=== PATIENT | male | born 1935 | race American Indian/Alaskan Native ===

== ENCOUNTER 2017-05-12 12:59 | Day surgery (SDC) | payer MEDICARE ==
[~2017-05-12 12:59] MED LIST: ANCEF/STERILE WATER 2 GM/20 ML 2 GM/20 ML SYRINGE IV NR
--- NOTE | 2017-05-12 13:56 | Anesthesia Consultation ---
Anesthesia Consult and Med Hx Date of service: 05/12/17 - Airway Anesthetic Teeth Evaluation: Dentures ROM Head & Neck: Adequate Mental/Hyoid Distance: Adequate Mallampati Class: Class I Intubation Access Assessment: Good - Pulmonary Exam CTA: Yes - Cardiac Exam Cardiac Exam: RRR - Pre-Operative Health Status ASA Pre-Surgery Classification: ASA3 Proposed Anesthetic Plan: General - Pulmonary Hx Smoking: No Hx Sleep Apnea: No (VINCENZO PRE SCREEN LOW RISK) - Cardiovascular System Hx Hypertension: No Hx Coronary Artery Disease: No Hx Heart Attack/AMI: No - Gastrointestinal Hx Ulcer: Yes Hx Gastroesophageal Reflux Disease: Yes (Active sx's) - Endocrine Hx Renal Disease: No Hx Non-Insulin Dependent Diabetes: Yes (Accucheck 232) - Other Systems Hx Substance Use: No Hx Cancer: Yes Hx Obesity: No - Additional Comments Anesthesia Medical History Comments: Pt. signs own forms, but appears to be somewhat confused. No apparent previous anesthesia complcations, according to the discussion during assessment.
--- NOTE | 2017-05-12 13:56 | Anesthesia Day of Surgery ---
Anesthesia Day of Surgery - Day of Surgery Patient Examined: Yes Patient H&P Reviewed: Yes Patient is NPO: Yes
[2017-05-12] MEDS ORDERED: PEPCID IV NR (14:00)
[2017-05-12] MEDS ORDERED: PEPCID PO NR (14:00)
[2017-05-12] MEDS ORDERED: NACL 0.9% 1000 ML 1,000 ML IV SCH ×2 (14:00)
[2017-05-12] MEDS ORDERED: MORPHINE IV PRN (14:37)
[2017-05-12] MEDS ORDERED: PERCOCET 5/325 PO PRN (14:37)
[2017-05-12] MEDS ORDERED: ZOFRAN IV PRN (14:37)
--- NOTE | 2017-05-12 15:07 | Post Operative Note ---
Date of procedure: 05/12/17 Pre-op diagnosis: hematuria Post-op diagnosis: same Findings: erythema post xrt Procedure: cysto rpgs biopsies Anesthesia: GETA Surgeon: OSWALD CARDONA Estimated blood loss: minimal Pathology: list (bladder) Specimen disposition: to lab Condition: stable Disposition: PACU
--- NOTE | 2017-05-12 15:08 | Discharge Summary ---
Short Stay Discharge Plan Activity: other (no strainin g ) Weight Bearing Status: Full Weight Bearing Diet: low fat, low cholesterol Special Instructions: other (inc fluids ) Durable Medical Equipment Needed Upon Discharge: other Follow up with: MARICRUZ SWEET [Other] - 7 Days OSWALD CARDONA MD [Staff Physician] - 7 Days
[2017-05-12] MEDS ORDERED: DIPRIVAN 10 MG/ML IV ONE (15:11)
[2017-05-12] MEDS ORDERED: SUBLIMAZE ONE (15:12)
[2017-05-12] MEDS ORDERED: ZOFRAN ONE (15:39)
[2017-05-12] MEDS ORDERED: XYLOCAINE MPF 2% ONE (15:39)
[2017-05-12] MEDS ORDERED: DECADRON ONE (15:39)
[2017-05-12] MEDS ORDERED: NEO SYNEPHRINE ONE (15:54)
[2017-05-12] MEDS ORDERED: WATER FOR IRRIG STERILE IR ONE (16:00)
--- NOTE | 2017-05-12 16:39 | Operative Report ---
PREOPERATIVE DIAGNOSES: History of radiation, increased erythema in the bladder, hematuria. POSTOPERATIVE DIAGNOSES: History of radiation, increased erythema in the bladder, hematuria. PROCEDURE: Cystoscopy, retrograde biopsy. SURGEON: Vishnu Anton MD. ANESTHESIA: General. FINDINGS: This is a gentleman with previous radiation, now presents for biopsies and cystoscopy. All risks and complications were discussed. DESCRIPTION OF PROCEDURE: The patient brought to the operating room and placed on the operating table. Following induction of anesthesia, placed in lithotomy position, prepped and draped in usual sterile fashion. Cystourethroscopy showed mild erythema posterior wall. Biopsies were obtained. The area was cauterized. Retrograde showed very small orifices, small on the right than the left. Retrograde showed air bubbles at the UPJ. We reinjected and waited for it to drain, so we could see a clear UPJ. We did not have the ureteroscope. The patient tolerated the procedure well. No catheter was left, brought to recovery in stable condition. JOB# [id number] IMTIAZ/LAURIE
--- NOTE | 2017-05-12 16:40 | Fluoroscopy Report ---
Retrograde pyelogram: Gross hematuria Initial images demonstrate brachy therapy seeds in the prostate bed. Injection of contrast into the left ureter demonstrates a normal appearing ureter and intrarenal collecting system with the exception of the superior pole calyces which are not included on the images. Injection of the right side demonstrates normal ureter and intrarenal collecting system. Impression: Nonvisualization of left superior pole calyx.
--- NOTE | 2017-05-12 16:44 | Post Anesthesia Evaluation ---
- Post Anesthesia Evaluation Patient Participated: Yes Airway Patent: Yes Stable Respiratory Function: Yes Temp > 96.8F: Yes Pain Manageable: Yes Adequeate Hydration: Yes Anesthesia Complications: No
[2017-05-12 17:01] VITALS: BP 156/90
== END 2017-05-12 18:10 | disposition home or self-care (01) ==
LOC: OR 12:59
PROVIDERS: ATTEND Urology
DX: C61 Malignant neoplasm of prostate (principal); Z87.891 Personal history of nicotine dependence
CPT/HCPCS: 52005; 52204; 74420; 82962; 88112; 88305; A4217; C1758; J0690; J1100; J2370; J2405; J2704; J3010; J7030; Q9967

== ENCOUNTER 2017-06-23 07:15 | Outpatient (CLI) | payer MEDICARE ==
--- NOTE | 2017-06-23 09:25 | Fluoroscopy Report ---
BARIUM SWALLOW INDICATION: Dysphagia. COMPARISON: None similar. FINDINGS: Barium swallow performed. Patient swallowed thick and thin barium without any difficulty as also tolerated effervescent granules well. No aspiration or penetration with normal swallowing mechanism. No abnormal pooling within the vallecula or right piriform sinus noted. Suboptimal coating/slight irregular filling/opacification of the left piriform sinus questioned on some images while appears symmetric/somewhat normal on few others. Esophagus is normal in course and caliber. Normal peristalsis. No focal suspicious esophageal mucosal abnormality. No demonstrable hiatal hernia or gastroesophageal reflux. Visualized gastric fundus is unremarkable. Standard barium tablet passed into the stomach without any difficulty or delay/holdup. CONCLUSION: Normal exam except for questionable irregularity/filling defect in the left piriform sinus versus artifactual, as described. Please also correlate clinically. Neck CT with contrast may help further characterize, if warranted. Thank you for the opportunity to participate in this patient's care.
== END 2017-06-23 07:16 | disposition home or self-care (01) ==
LOC: FLUORO 07:15
PROVIDERS: ATTEND Internal Medicine Gastroenterology
DX: R13.10 Dysphagia, unspecified (principal); R10.10 Upper abdominal pain, unspecified; R63.4 Abnormal weight loss; Z86.19 Personal history of other infectious and parasitic diseases
CPT/HCPCS: 74220

== ENCOUNTER 2018-05-31 13:10 | Emergency (ER) | payer MEDICARE ==
--- NOTE | 2018-05-31 13:39 | Emergency Department Report ---
ED Fall HPI - General Chief Complaint: Fall Stated Complaint: FALL Source: patient, family Mode of arrival: Wheelchair - History of Present Illness Initial Comments: This is a 82-year-old -[place] male who presents with left-sided rib pain and radiating to left flank. Patient states he was walking down the stairs in his home with a load of laundry and missed the second step from the top causing him to fall. Patient states his back bumped against several steps prior to landing. He is now complaining of left-sided rib heaviness radiating to the left flank. Patient reports pain is 10 out of 10 on pain scale worse with touch. It is a sharp radiating pain. He denies loss of consciousness, hitting his, dizziness, nausea or vomiting, chest pain, shortness of breath, paresthesias, swelling, or numbness or tingling. MD Complaint: fall Onset/Timin -: hour(s) Fall From: down stairs (#) (12) When Fall Occurred: 1-3 hours [employer] Fall Witnessed: no Place Fall Occurred: home Loss of Consciousness: none Prolonged Down Time?: no Symptoms Prior to Fall: none Location: chest (left sided rib pain), back Severity: severe Severity scale (0 -10): 10 Quality: sharp, aching Context: tripped/slipped Associated Symptoms: denies - Related Data Home Medications Medication Instructions Recorded Confirmed Last Taken Glipizide/Metformin HCl 1 each PO BID 05/06/17 05/12/17 05/11/17 09:00 [glipiZIDE-Metformin 5-500 mg] Previous Rx's Medication Instructions Recorded Last Taken Type Pantoprazole [Protonix TAB] 20 mg PO QDAY #30 tablet. 10/01/15 05/11/17 09:00 Rx traMADol [Ultram 50 MG tab] 50 mg PO Q6HR PRN #8 tablet 05/31/18 Unknown Rx Allergies Allergy/AdvReac Type Severity Reaction Status Date / Time No Known Allergies Allergy Verified 05/31/18 13:17 ED Review of Systems ROS: Stated complaint: FALL Other details as noted in HPI Constitutional: denies: chills, fever Respiratory: denies: cough, shortness of breath, wheezing Cardiovascular: denies: chest pain, palpitations Gastrointestinal: denies: abdominal pain, nausea, diarrhea Musculoskeletal: back pain. denies: joint swelling, arthralgia Skin: denies: rash, lesions Neurological: denies: headache, weakness, paresthesias Psychiatric: denies: anxiety, depression ED Past Medical Hx - Past Medical History Hx Hypertension: No Hx Heart Attack/AMI: No Hx Diabetes: Yes Hx GERD: Yes Hx Renal Disease: No Hx Arthritis: Yes (ARMS AND SHOULDER) Hx HIV: No Additional medical history: blood in stool @ times - Surgical History Hx Appendectomy: Yes Additional Surgical History: Prostate surgery - Social History Smoking Status: Never Smoker Substance Use Type: None - Medications Home Medications: Home Medications Medication Instructions Recorded Confirmed Last Taken Type Pantoprazole [Protonix TAB] 20 mg PO QDAY #30 tablet. 10/01/15 05/12/17 05/11/17 09:00 Rx Glipizide/Metformin HCl 1 each PO BID 05/06/17 05/12/17 05/11/17 09:00 History [glipiZIDE-Metformin 5-500 mg] traMADol [Ultram 50 MG tab] 50 mg PO Q6HR PRN #8 tablet 05/31/18 Unknown Rx ED Physical Exam - General Limitations: Physical Limitation General appearance: alert, in no apparent distress - Respiratory Respiratory exam: Present: normal lung sounds bilaterally, chest wall tenderness (tenderness on palpation of ribs 6-8 on left, no erythema or swelling). Absent: respiratory distress - Cardiovascular Cardiovascular Exam: Present: regular rate, normal rhythm. Absent: systolic murmur, diastolic murmur, rubs, gallop - GI/Abdominal GI/Abdominal exam: Present: soft, normal bowel sounds. Absent: distended, tenderness, guarding, rebound, rigid, organomegaly, mass - Back Exam Back exam: Present: tenderness, paraspinal tenderness (tenderness to palpation of left latissimus dorsi, no erythema, ecchymosis, or swelling). Absent: full ROM (limited flexion secondary pain), rash noted - Neurological Exam Neurological exam: Present: alert, oriented X3 - Psychiatric Psychiatric exam: Present: normal affect, normal mood - Skin Skin exam: Present: warm, dry, intact, normal color. Absent: rash ED Course Vital Signs 05/31/18 05/31/18 05/31/18 13:17 13:32 14:09 Temperature 98.0 F Pulse Rate 82 Respiratory 18 17 16 Rate Blood Pressure 125/89 O2 Sat by Pulse 100 Oximetry ED Medical Decision Making - Radiology Data Radiology results: report reviewed THORACIC SPINE, 2 VIEWS: HISTORY: back pain. Osteopenia is suspected. There is moderate multilevel degenerative disc disease throughout the thoracic spine. T1-T3 is not adequately visualized on the lateral image but are grossly unremarkable on the AP image. No obvious thoracic fracture is appreciated. IMPRESSION: Osteopenia. Thoracic spondylosis. No obvious fracture. There is poor visualization of T1-T3. LEFT RIBS, 3 VIEWS: History: pain. Routine views of the rib cage demonstrate normal mineralization with no significant contour abnormalities, fractures or destructive lesions. PA view of the chest demonstrates no underlying cardiopulmonary abnormalities, fluid or pneumothorax. IMPRESSION: Unremarkable left rib series. - Medical Decision Making Patient was examined by me. Vitals are normal and patient is in no acute distress. Given tramadol 50 mg by mouth once while in ER. Obtained a x-ray thoracic spine and left ribs. X-ray dictated by radiologist report reviewed by myself. Osteopenia. Thoracic spondylosis. No obvious fracture. There is poor visualization of T1-T3. Unremarkable left rib series. Patient informed of results. Start tramadol for pain. Instructed to follow-up with primary care provider if symptoms are worsening. Referral to orthopedic surgeon. Patient discharged home in stable condition. Follow up with PCP in 2-3 days. Critical care attestation.: If time is entered above; I have spent that time in minutes in the direct care of this critically ill patient, excluding procedure time. ED Disposition Clinical Impression: Rib pain on left side, Muscle strain Back pain Qualifiers: Back pain location: thoracic back pain Chronicity: acute Back pain laterality: left Qualified Code(s): M54.6 - Pain in thoracic spine Fall Qualifiers: Encounter type: initial encounter Qualified Code(s): W19.XXXA - Unspecified fall, initial encounter Disposition: TO HOME OR SELFCARE Is pt being admited?: No Does the pt Need Aspirin: No Condition: Stable Instructions: Muscle Strain (ED), Fall Prevention (ED), Back Pain (ED) Additional Instructions: Rest Use ice or heat on affected area for 20 minutes and off for 2 hours. Take pain medication as needed for pain. Follow up with Primary Care Provider in 2-3 days. Prescriptions: traMADol [Ultram 50 MG tab] 50 mg PO Q6HR PRN #8 tablet PRN Reason: Pain Referrals: OBIEKWE,ONWURA, MD [Primary Care Provider] - 3-5 Days [facility] [Provider Group] - 3-5 Days [facility] [Provider Group] - 3-5 Days Time of Disposition: 14:50
[2018-05-31] MEDS ORDERED: ULTRAM PO ONE (14:06)
--- NOTE | 2018-05-31 14:31 | XRay Report ---
LEFT RIBS, 3 VIEWS: History: pain. Routine views of the rib cage demonstrate normal mineralization with no significant contour abnormalities, fractures or destructive lesions. PA view of the chest demonstrates no underlying cardiopulmonary abnormalities, fluid or pneumothorax. IMPRESSION: Unremarkable left rib series.
--- NOTE | 2018-05-31 14:32 | XRay Report ---
THORACIC SPINE, 2 VIEWS: HISTORY: back pain. Osteopenia is suspected. There is moderate multilevel degenerative disc disease throughout the thoracic spine. T1-T3 is not adequately visualized on the lateral image but are grossly unremarkable on the AP image. No obvious thoracic fracture is appreciated. IMPRESSION: Osteopenia. Thoracic spondylosis. No obvious fracture. There is poor visualization of T1-T3.
[2018-05-31 15:14] VITALS: BP 148/89
== END 2018-05-31 15:13 | disposition home or self-care (01) ==
LOC: ED 13:10
DX: S29.011A Strain of muscle and tendon of front wall of thorax, initial encounter (principal); E11.9 Type 2 diabetes mellitus without complications; K21.9 Gastro-esophageal reflux disease without esophagitis; M19.012 Primary osteoarthritis, left shoulder; M19.011 Primary osteoarthritis, right shoulder; W10.9XXA Fall (on) (from) unspecified stairs and steps, initial encounter; Y93.89 Activity, other specified; Y92.89 Other specified places as the place of occurrence of the external cause; Y99.8 Other external cause status
CPT/HCPCS: 72072

== ENCOUNTER 2020-09-20 18:52 | Inpatient (IN) | payer MEDICARE ==
[2020-09-20] MEDS ORDERED: SODIUM CHLORIDE 0.9% 1000 ML 1,000 ML IV ONE (19:55)
--- NOTE | 2020-09-20 20:01 | Emergency Department Report ---
HPI - General Chief Complaint: Hypoglycemia PUI?: No Time Seen by Provider: 09/20/20 19:40 - HPI HPI: 85-year-old male with history of DM 2 on combination of glipizide and Metformin brought in by EMS after he was found unresponsive. Apparently he passed out while on the way to a gas station. He was outside of his car and was walking but it is unclear whether he actually fell over or hit his head, although the patient denies any injuries. According to the EMS report, the patient's blood sugar was 50 on arrival. He was given oral glucose with improvement of his blood sugar to 137. In addition, the patient became alert and oriented with the treatment. At the time of my assessment, the patient is alert and oriented alt fabian he is a very poor historian. He states he remembers going to the gas station to try to get some food but does not remember anything after that. He says that he has been suffering from peptic ulcer disease for very long time and has chronic abdominal pain but his epigastric abdominal pain has been worse over the last day. He is unable to say whether his abdomen is more distended than normal. Other than the abdominal pain which he states is not that uncommon, he has had no other symptoms or complaints. When asked, he does say that he has had some urinary frequency and dysuria recently. He denies any recent fever/chills, headache, vision change, chest pain, shortness of breath, vomi ting, increased lower extremity swelling, or any other complaints. ED Past Medical Hx - Past Medical History Previous Medical History?: Yes Hx Hypertension: No Hx Heart Attack/AMI: No Hx Diabetes: Yes Hx GERD: Yes Hx Renal Disease: No Hx Arthritis: Yes (ARMS AND SHOULDER) Hx HIV: No Additional medical history: blood in stool @ times - Surgical History Past Surgical History?: Yes Hx Appendectomy: Yes Additional Surgical History: Prostate surgery - Social History Smoking Status: Never Smoker Substance Use Type: None - Medications Home Medications: Home Medications Medication Instructions Recorded Confirmed Last Taken Type Pantoprazole [Protonix TAB] 20 mg PO QDAY #30 tablet. 10/01/15 05/12/17 05/11/17 09:00 Rx Glipizide/Metformin HCl 1 each PO BID 05/06/17 05/12/17 05/11/17 09:00 History [glipiZIDE-Metformin 5-500 mg] traMADoL [Ultram 50 MG tab] 50 mg PO Q6HR PRN #8 tablet 05/31/18 Unknown Rx ED Review of Systems ROS: Stated complaint: LOW BLOOD SUGAR Other details as noted in HPI Constitutional: denies: chills, fever Eyes: denies: eye pain, vision change ENT: denies: throat pain, epistaxis Respiratory: denies: cough, shortness of breath Cardiovascular: denies: chest pain, syncope Gastrointestinal: abdominal pain. denies: nausea, vomiting Genitourinary: dysuria, frequency Musculoskeletal: denies: back pain, myalgia Neurological: denies: headache, weakness, numbness, paresthesias Physical Exam - Physical Exam Vital Signs: Vital Signs 09/20/20 09/20/20 09/20/20 19:15 19:30 19:47 Temperature 94.8 F L Pulse Rate 67 64 Respiratory 36 H 15 Rate Blood Pressure 142/74 O2 Sat by Pulse 99 98 Oximetry Physical Exam: GENERAL: No acute distress HEENT: Normocephalic. No obvious contusions, lacerations, or abrasions. Very dry mucous membranes. EYES: Extraocular movements are intact. Pupils are equal round and reactive to light bilaterally NECK: Supple. Trachea is midline. LUNGS: Nonlabored breathing. Equal chest rise bilaterally. Clear to auscultation bilaterally. HEART/CARDIOVASCULAR: Regular rate and rhythm. No murmurs or rubs. ABDOMEN: Abdomen very distended but soft. There is tenderness noted in all four quadrants without rebound or guarding. SKIN: Skin is warm and dry NEURO: Patient is awake, alert, and oriented. No focal deficits. Normal motor and sensory exam throughout. Normal speech. MUSCULOSKELETAL: Normal ROM throughout. There are no tenderness or deformity. No significant limitation of range of motion. BACK/SPINE: No midline tenderness or step-offs of the C/T/L spine. No cos tovertebral angle tenderness. ED Course Vital Signs 09/20/20 09/20/20 09/20/20 19:15 19:30 19:47 Temperature 94.8 F L Pulse Rate 67 64 Respiratory 36 H 15 Rate Blood Pressure 142/74 O2 Sat by Pulse 99 98 Oximetry ED Medical Decision Making - Lab Data Result diagrams: 09/20/20 23:16 09/20/20 20:00 Laboratory Results - last 24 hr 09/20/20 09/20/20 09/20/20 20:00 20:00 20:00 WBC 7.1 RBC 4.77 Hgb 13.9 Hct 41.8 MCV 88 MCH 29 MCHC 33 RDW 14.2 Plt Count 259 Lymph % (Auto) 14.6 [place] % (Auto) 4.5 Eos % (Auto) 0.2 Baso % (Auto) 0.5 Lymph # (Auto) 1.0 L [place] # (Auto) 0.3 Eos # (Auto) 0.0 Baso # (Auto) 0.0 Seg Neutrophils % 80.2 H Seg Neutrophils # 5.7 APTT 24.1 L Sodium 140 Potassium 3.8 Chloride 104.9 Carbon Dioxide 25 Anion Gap 14 BUN 9 Creatinine 0.8 Estimated GFR > 60 BUN/Creatinine Ratio 11 Glucose 142 H Lactic Acid Calcium 9.1 Total Bilirubin 0.60 AST 17 ALT 13 Alkaline Phosphatase 107 Troponin T < 0.010 Total Protein 7.0 Albumin 4.1 Albumin/Globulin Ratio 1.4 Urine Color Urine Turbidity Urine pH Ur Specific [place] Urine Protein Urine Glucose (UA) Urine Ketones Urine Blood Urine Nitrite Urine Bilirubin Urine Urobilinogen Ur Leukocyte Esterase Urine WBC (Auto) Urine RBC (Auto) U Epithel Cells (Auto) Urine Mucus 09/20/20 09/20/20 20:00 21:10 WBC RBC Hgb Hct MCV MCH MCHC RDW Plt Count Lymph % (Auto) [place] % (Auto) Eos % (Auto) Baso % (Auto) Lymph # (Auto) [place] # (Auto) Eos # (Auto) Baso # (Auto) Seg Neutrophils % Seg Neutrophils # APTT Sodium Potassium Chloride Carbon Dioxide Anion Gap BUN Creatinine Estimated GFR BUN/Creatinine Ratio Glucose Lactic Acid 1.70 Calcium Total Bilirubin AST ALT Alkaline Phosphatase Troponin T Total Protein Albumin Albumin/Globulin Ratio Urine Color Straw Urine Turbidity Clear Urine pH 6.0 Ur Specific [place] 1.011 Urine Protein 30 mg/dl Urine Glucose (UA) 50 Urine Ketones Neg Urine Blood Neg Urine Nitrite Neg Urine Bilirubin Neg Urine Urobilinogen < 2.0 Ur Leukocyte Esterase Neg Urine WBC (Auto) < 1.0 Urine RBC (Auto) < 1.0 U Epithel Cells (Auto) < 1.0 Urine Mucus Few - EKG Data -: EKG Interpreted by Md EKG shows normal: sinus rhythm - EKG Data 05/21/21 22:43 Normal sinus rhythm. Normal axis. Normal intervals. No significant ST segment or T wave abnormalities. - Radiology Data CT ABDOMEN AND PELVIS WITH CONTRAST INDICATION: Generalized abdominal pain and distension. TECHNIQUE: Axial CT images were obtained through the abdomen and pelvis after 100 cc IV contrast. All CT scans at this location are performed using CT dose reduction for ALARA by means of automated exposure control. COMPARISON: CT abdomen pelvis 10/08/2015 FINDINGS: LOWER CHEST: Chronic mild bilateral interstitial disease/scarring. LIVER: No significant abnormality. GALLBLADDER: No significant abnormality. BILE DUCTS: No significant abnormality. PANCREAS: No significant abnormality. SPLEEN: No significant abnormality. ADRENALS: No significant abnormality. RIGHT KIDNEY and URETER: No significant abnormality. LEFT KIDNEY and URETER: No significant abnormality. STOMACH and SMALL BOWEL: No significant abnormality. COLON: Moderate left colonic diverticulosis without diverticulitis. Moderate amount of solid stool diffusely throughout colon. APPENDIX: Not visualized PERITONEUM: No free fluid. No free air. No fluid collection. LYMPH NODES: No significant adenopathy. AORTA and ARTERIES: No significant abnormality. IVC and VEINS: No significant abnormality. URINARY BLADDER: Mild to moderate thickening anterior half urinary bladder, similar to prior study REPRODUCTIVE ORGANS: Brachytherapy prostate seeds again noted. ADDITIONAL FINDINGS: None. SKELETAL SYSTEM: Moderate degenerative changes of lumbar spine and both hips IMPRESSION: 1. Brachytherapy prostate seeds with thickened anterior half urinary bladder, similar to prior study [place] secondary to chronic cystitis rather than infiltrating tumor or acute infectious cystitis 2. Diverticulosis without diverticulitis 3. Moderate constipation Signer Name: Jorge Jaramillo MD Signed: 09/20/2020 8:33 PM Workstation Name: [id number] CHEST 1 VIEW 09/20/2020 7:35 PM INDICATION / CLINICAL INFORMATION: Possible sepsis. COMPARISON: None available. FINDINGS: SUPPORT DEVICES: None. HEART / MEDIASTINUM: No significant abnormality. LUNGS / PLEURA: No significant pulmonary or pleural abnormality. No pneumothorax. ADDITIONAL FINDINGS: Moderate degenerative arthrosis both shoulders IMPRESSION: 1. No acute findings. Signer Name: Jorge Jaramillo MD Signed: 09/20/2020 7:36 PM Wor kstation Name: [id number] - Medical Decision Making 85-year-old male brought in by EMS after he was found to have passed out at a gas station. He was found to be hypoglycemic with a blood sugar of 50 which improved to 137 after oral glucose. The patient's clinical status improved as well. On initial assessment, the patient was noted to have a rectal temperature of 94.8. The remainder of his vital signs are not significantly abnormal. Although the patient is alert and oriented, he is a poor historian and it is very difficult to get straight answers or details of the patient's history of present illness. His physical exam is significant for very dry mucous membranes and significant generalized abdominal distention as well as generalized tenderness without guarding or rebound. Although his hypoglycemia may have been secondary to not eating today and taking medication which includes both glipizide and Metformin, given that hypoglycemia can be secondary to infection, suspected sepsis order set was initiated until we are able to determine whether an infection is present. In addition, I have ordered CT of the abdomen and pelvis with IV contrast as well as every hour Accu-Cheks. We will give 1 L of IV fluids with frequent blood glucose checks to ensure that we avoid hypoglycemia At 9:22 PM, on repeat assessment, the patient is noted to still be hypothermic with a rectal temp of 94.4 F. Labs including CBC, CMP, troponin, lactic acid, and urinalysis are within normal limits. We will follow up imaging. Chest x-ray shows no significant abnormalities. CT of the abdomen and pelvis reveals no significant abnormalities to explain the patient's abdominal pain or hypoglycemia. Nonetheless, given that he was persistently hypothermic and presented with hypoglycemia of unknown origin he will require admission to the hospital for further observation and possible work-up/management. Critical Care Time: No Critical care attestation.: If time is entered above; I have spent that time in minutes in the direct care of this critically ill patient, excluding procedure time. ED Disposition Clinical Impression: Hypoglycemia, Hypothermia, Generalized abdominal pain, Syncope Disposition: OP ADMIT IP TO THIS HOSP Is pt being admited?: Yes Condition: Stable
[2020-09-20 20:23] LABS: Basophils % (Auto) 0.5 % (0.0-1.8); Eosinophils % (Auto) 0.2 % (0.0-4.3); Hematocrit 41.8 % (35.5-45.6); Hemoglobin 13.9 gm/dl (11.8-15.2); Lymphocytes % (Auto) 14.6 % (13.4-35.0); Mean Corpuscular HGB Conc 33 % (32-34); Mean Corpuscular Volume 88 fl (84-94); Monocytes # (Auto) 0.3 K/mm3 (0.0-0.8); Monocytes % (Auto) 4.5 % (0.0-7.3); Platelet Count 259 K/mm3 (140-440); Red Blood Count 4.77 M/mm3 (3.65-5.03); Red Cell Distribution Width 14.2 % (13.2-15.2)
--- NOTE | 2020-09-20 20:41 | XRay Report ---
CHEST 1 VIEW 09/20/2020 7:35 PM INDICATION / CLINICAL INFORMATION: Possible sepsis. COMPARISON: None available. FINDINGS: SUPPORT DEVICES: None. HEART / MEDIASTINUM: No significant abnormality. LUNGS / PLEURA: No significant pulmonary or pleural abnormality. No pneumothorax. ADDITIONAL FINDINGS: Moderate degenerative arthrosis both shoulders IMPRESSION: 1. No acute findings. Signer Name: Jorge Jaramillo MD Signed: 09/20/2020 8:36 PM Workstation Name: [id number]
[2020-09-20 20:44] LABS: Alanine Aminotransferase 13 units/L (7-56); Albumin 4.1 g/dL (3.9-5); BUN/Creatinine Ratio 11; Blood Urea Nitrogen 9 mg/dL (9-20); Calcium 9.1 mg/dL (8.4-10.2); Hemolysis Index 9
--- NOTE | 2020-09-20 21:38 | Cat Scan Report ---
CT ABDOMEN AND PELVIS WITH CONTRAST INDICATION: Generalized abdominal pain and distension. TECHNIQUE: Axial CT images were obtained through the abdomen and pelvis after 100 cc IV contrast. All CT scans at this location are performed using CT dose reduction for ALARA by means of automated exposure contr ol. COMPARISON: CT abdomen pelvis 10/08/2015 FINDINGS: LOWER CHEST: Chronic mild bilateral interstitial disease/scarring. LIVER: No significant abnormality. GALLBLADDER: No significant abnormality. BILE DUCTS: No significant abnormality. PANCREAS: No significant abnormality. SPLEEN: No significant abnormality. ADRENALS: No significant abnormality. RIGHT KIDNEY and URETER: No significant abnormality. LEFT KIDNEY and URETER: No significant abnormality. STOMACH and SMALL BOWEL: No significant abnormality. COLON: Moderate left colonic diverticulosis without diverticulitis. Moderate amount of solid stool di ffusely throughout colon. APPENDIX: Not visualized PERITONEUM: No free fluid. No free air. No fluid collection. LYMPH NODES: No significant adenopathy. AORTA and ARTERIES: No significant abnormality. IVC and VEINS: No significant abnormality. URINARY BLADDER: Mild to moderate thickening anterior half urinary bladder, similar to prior study REPRODUCTIVE ORGANS: Brachytherapy prostate seeds again noted. ADDITIONAL FINDINGS: None. SKELETAL SYSTEM: Moderate degenerative changes of lumbar spine and both hips IMPRESSION: 1. Brachytherapy prostate seeds with thickened anterior half urinary bladder, similar to prior study likely secondary to chronic cystitis rather than infiltrating tumor or acute infectious cystitis 2. Diverticulosis without diverticulitis 3. Moderate constipation Signer Name: Jorge Jaramillo MD Signed: 09/20/2020 9:33 PM Workstation Name: [id number]
[2020-09-20 21:39] LABS: Bilirubin,Urine NEG (Negative); Blood,Urine NEG (Negative); Color,Urine Straw (Yellow); Mucus,Urine FEW /HPF; Urobilinogen,Urine < 2.0 mg/dL (<2.0)
[2020-09-20 21:40] LABS: RBC,Urine < 1.0 /HPF (0.0-6.0); WBC,Urine < 1.0 /HPF (0.0-6.0)
[2020-09-20] MEDS ORDERED: ONDANSETRON 4 MG/2 ML INJ IV PRN (23:03)
[2020-09-20] MEDS ORDERED: DEXTROSE 50% IN WATER (25GM) 50 ML SYRINGE IV PRN (23:03)
[2020-09-20] MEDS ORDERED: ACETAMINOPHEN 325 MG TAB PO PRN ×2 (23:03)
[2020-09-20] MEDS ORDERED: SODIUM CHLORIDE 0.9% 1000 ML 1,000 ML IV SCH (23:15)
--- NOTE | 2020-09-20 23:15 | History and Physical Report ---
History of Present Illness Date of examination: 09/20/20 Date of admission: 09/20/20 Chief complaint: Hypoglycemia Hypothermia History of present illness: 85-year-old male with past medical history of DM 2 on combination of glipizide and Metformin brought in by EMS after he was found unresponsive. Apparently he passed out while on the way to a gas station. He was outside of his car and was walking but it is unclear whether he actually fell over or hit his head, although the patient denies any injuries. According to the EMS report, the patient's blood sugar was 50 on arrival. He was given oral glucose with improvement of his blood sugar to 137. In addition, the patient became alert and oriented with the treatment. At the time of my assessment, the patient is alert and oriented although he is a very poor historian. He states he remembers going to the gas station to try to get some food but does not remember anything after that. He says that he has been suffering from peptic ulcer disease for very long time and has chronic abdominal pain but his epigastric abdominal pain has been worse over the last day. He is unable to say whether his abdomen is more distended than normal. Other than the abdominal pain which he states is not that uncommon, he has had no other symptoms or complaints. When asked, he does say that he has had some urinary frequency and dysuria recently. He denies any recent fever/chills, headache, vision change, chest pain, shortness of breath, vomiting, increased lower extremity swelling, or any other complaints. Chest x-ray shows no significant abnormalities. CT of the abdomen and pelvis reveals no significant abnormalities to explain the patient's abdominal pain or hypoglycemia. Also patient temperature is 94.8 patient is on Roger hugger Past History Past Medical History: arthritis, diabetes, GERD Medications and Allergies Allergies Allergy/AdvReac Type Severity Reaction Status Date / Time No Known Allergies Allergy Verified 05/31/18 13:17 Home Medications Medication Instructions Recorded Confirmed Last Taken Type Pantoprazole [Protonix TAB] 20 mg PO QDAY #30 tablet. 10/01/15 05/12/17 05/11/17 09:00 Rx Glipizide/Metformin HCl 1 each PO BID 05/06/17 05/12/17 05/11/17 09:00 History [glipiZIDE-Metformin 5-500 mg] traMADoL [Ultram 50 MG tab] 50 mg PO Q6HR PRN #8 tablet 05/31/18 Unknown Rx Active Meds: Active Medications Acetaminophen (Acetaminophen 325 Mg Tab) 650 mg PO Q4H PRN PRN Reason: Pain MILD(1-3)/Fever >100.5/GALVEZ Acetaminophen (Acetaminophen 325 Mg Tab) 650 mg PO Q6H PRN PRN Reason: Pain, Mild (1-3) Aspirin (Aspirin 81 Mg Tab Chew) 81 mg PO QDAY [facility] Atorvastatin Calcium (Atorvastatin 40 Mg Tab) 40 mg PO QHS [facility] Dextrose (Dextrose 50% In Water (25gm) 50 Ml Syringe) 50 ml IV Q30MIN PRN; Protocol PRN Reason: Hypoglycemia Famotidine (Famotidine 10 Mg Tab) 10 mg PO BID [facility] Sodium Chloride (Nacl 0.9% 1000 Ml) 1,000 mls @ 100 mls/hr IV DIRECT [facility] Insulin Human Lispro (Insulin Lispro 100 Unit/Ml) 0 unit SUB-Q ACHS [facility]; Protocol Ondansetron HCl (Ondansetron 4 Mg/2 Ml Inj) 4 mg IV Q8H PRN PRN Reason: Nausea And Vomiting Pantoprazole Sodium (Pantoprazole 40 Mg Tab) 40 mg PO QDAY [facility] Sodium Chloride (Sodium Chloride 0.9% 10 Ml Flush Syringe) 10 ml IV BID [facility] Sodium Chloride (Sodium Chloride 0.9% 10 Ml Flush Syringe) 10 ml IV PRN PRN PRN Reason: LINE FLUSH Sodium Chloride (Sodium Chloride 0.9% 10 Ml Flush Syringe) 10 ml IV PRN PRN PRN Reason: LINE FLUSH Tramadol HCl (Tramadol 50 Mg Tab) 50 mg PO Q6H PRN PRN Reason: Pain, Moderate (4-6) Review of Systems Constitutional: other (Syncope, unresponsiveness) Neurological: change in mentation Exam - Constitutional Vitals: Temp Pulse Resp BP Pulse Ox 94.8 F L 66 14 152/83 99 09/20/20 19:47 09/20/20 22:30 09/20/20 22:30 09/20/20 22:30 09/20/20 20:16 General appearance: Present: no acute distress, well-nourished - EENT Eyes: Present: PERRL ENT: hearing intact, clear oral mucosa - Neck Neck: Present: supple, normal ROM - Respiratory Respiratory effort: normal Respiratory: bilateral: CTA - Cardiovascular Heart Sounds: Present: S1 & S2. Absent: rub, click - Extremities Extremities: pulses symmetrical, No edema Peripheral Pulses: within normal limits - Abdominal General gastrointestinal: Present: soft, non-tender, non-distended, normal bowel sounds Male genitourinary: Present: normal - Integumentary Integumentary: Present: clear, warm, dry - Musculoskeletal Musculoskeletal: gait normal, strength equal bilaterally - Psychiatric Psychiatric: appropriate mood/affect, intact judgment & insight - Neurologic Neurologic: CNII-XII intact, moves all extremities HEART Score - HEART Score Troponin: Troponin T < 0.010 ng/mL (0.00-0.029) 09/20/20 20:00 Results - Labs CBC & Chem 7: 09/20/20 20:00 09/20/20 20:00 Labs: Laboratory Last Values WBC 7.1 K/mm3 (4.5-11.0) 09/20/20 20:00 RBC 4.77 M/mm3 (3.65-5.03) 09/20/20 20:00 Hgb 13.9 gm/dl (11.8-15.2) 09/20/20 20:00 Hct 41.8 % (35.5-45.6) 09/20/20 20:00 MCV 88 fl (84-94) 09/20/20 20:00 MCH 29 pg (28-32) 09/20/20 20:00 MCHC 33 % (32-34) 09/20/20 20:00 RDW 14.2 % (13.2-15.2) 09/20/20 20:00 Plt Count 259 K/mm3 (140-440) 09/20/20 20:00 Lymph % (Auto) 14.6 % (13.4-35.0) 09/20/20 20:00 [place] % (Auto) 4.5 % (0.0-7.3) 09/20/20 20:00 Eos % (Auto) 0.2 % (0.0-4.3) 09/20/20 20:00 Baso % (Auto) 0.5 % (0.0-1.8) 09/20/20 20:00 Lymph # (Auto) 1.0 K/mm3 (1.2-5.4) L 09/20/20 20:00 [place] # (Auto) 0.3 K/mm3 (0.0-0.8) 09/20/20 20:00 Eos # (Auto) 0.0 K/mm3 (0.0-0.4) 09/20/20 20:00 Baso # (Auto) 0.0 K/mm3 (0.0-0.1) 09/20/20 20:00 Seg Neutrophils % 80.2 % (40.0-70.0) H 09/20/20 20:00 Seg Neutrophils # 5.7 K/mm3 (1.8-7.7) 09/20/20 20:00 APTT 24.1 Sec. (24.2-36.6) L 09/20/20 20:00 Sodium 140 mmol/L (137-145) 09/20/20 20:00 Potassium 3.8 mmol/L (3.6-5.0) 09/20/20 20:00 Chloride 104.9 mmol/L (98-107) 09/20/20 20:00 Carbon Dioxide 25 mmol/L (22-30) 09/20/20 20:00 Anion Gap 14 mmol/L 09/20/20 20:00 BUN 9 mg/dL (9-20) 09/20/20 20:00 Creatinine 0.8 mg/dL (0.8-1.3) 09/20/20 20:00 Estimated GFR > 60 ml/min 09/20/20 20:00 BUN/Creatinine Ratio 11 % 09/20/20 20:00 Glucose 142 mg/dL (75-100) H 09/20/20 20:00 Lactic Acid 1.70 mmol/L (0.7-2.0) 09/20/20 20:00 Calcium 9.1 mg/dL (8.4-10.2) 09/20/20 20:00 Total Bilirubin 0.60 mg/dL (0.1-1.2) 09/20/20 20:00 AST 17 units/L (5-40) 09/20/20 20:00 ALT 13 units/L (7-56) 09/20/20 20:00 Alkaline Phosphatase 107 units/L (35-129) 09/20/20 20:00 Troponin T < 0.010 ng/mL (0.00-0.029) 09/20/20 20:00 Total Protein 7.0 g/dL (6.3-8.2) 09/20/20 20:00 Albumin 4.1 g/dL (3.9-5) 09/20/20 20:00 Albumin/Globulin Ratio 1.4 % 09/20/20 20:00 Urine Color Straw (Yellow) 09/20/20 21:10 Urine Turbidity Clear (Clear) 09/20/20 21:10 Urine pH 6.0 (5.0-7.0) 09/20/20 21:10 Ur Specific [place] 1.011 (1.003-1.030) 09/20/20 21:10 Urine Protein 30 mg/dl mg/dL (Negative) 09/20/20 21:10 Urine Glucose (UA) 50 mg/dL (Negative) 09/20/20 21:10 Urine Ketones Neg mg/dL (Negative) 09/20/20 21:10 Urine Blood Neg (Negative) 09/20/20 21:10 Urine Nitrite Neg (Negative) 09/20/20 21:10 Urine Bilirubin Neg (Negative) 09/20/20 21:10 Urine Urobilinogen < 2.0 mg/dL (<2.0) 09/20/20 21:10 Ur Leukocyte Esterase Neg (Negative) 09/20/20 21:10 Urine WBC (Auto) < 1.0 /HPF (0.0-6.0) 09/20/20 21:10 Urine RBC (Auto) < 1.0 /HPF (0.0-6.0) 09/20/20 21:10 U Epithel Cells (Auto) < 1.0 /HPF (0-13.0) 09/20/20 21:10 Urine Mucus Few /HPF 09/20/20 21:10 Microbiology: Microbiology 09/20/20 20:11 Peripheral/Venous Blood Culture - Preliminary Culture in Progress 09/20/20 20:00 Peripheral/Venous Blood Culture - Preliminary Culture in Progress - Imaging and Cardiology CT scan - abdomen: report reviewed Assessment and Plan VTE prophylaxis?: Chemical Plan of care discussed with patient/family: Yes - Patient Problems (1) Hyperglycemia Current Visit: Yes Status: Acute Plan to address problem: Admit the patient to the medical floor telemetry. Put the patient on 1800 kcal ADA diet. We will hold the Metformin and glipizide. We will put the patient on insulin sliding scale. We will monitor the glucose closely. We also consult diabetic education. Recheck CBC BMP in the morning (2) Hypothermia Current Visit: Yes Status: Acute Plan to address problem: Patient is on Roger hugger. Tylenol 650 mg p.o. every 6 as needed. We will monitor the patient closely (3) GERD (gastroesophageal reflux disease) Current Visit: Yes Status: Acute Plan to address problem: Protonix 40 mg p.o. daily Zofran 4 mg IV every 6 as needed (4) Syncope Current Visit: Yes Status: Acute Plan to address problem: Aspirin 81 mg p.o. daily Lipitor 40 mg p.o. daily. Normal saline at the rate of 100 cc/h. We do the serial cardiac enzymes we also do echocardiogram and carotid Doppler. If needed will consult cardiology to see the patient (5) Type 2 diabetes mellitus Current Visit: No Status: Chronic Plan to address problem: We will put the patient on 1800 kcal ADA diet, we will hold the Metformin glipizide because of hypoglycemia. We will put the patient on Humalog sliding scale Accu-Chek before meals and at bedtime medium dose coverage. Diabetic education (6) Arthritis Current Visit: Yes Status: Acute Plan to address problem: Stable. Tylenol 650 mg p.o. every 6 hours as needed (7) DVT prophylaxis Current Visit: Yes Status: Acute Plan to address problem: Heparin 5000 units subcu every 8 hours for the DVT prophylaxis. Protonix 40 mg p.o. daily for GI prophylaxis. Patient is a full code.
[2020-09-20] MEDS ORDERED: hydrALAZINE 20 MG/1 ML INJ IV PRN (23:20)
[2020-09-20 23:37] LABS: Basophils % (Auto) 0.6 % (0.0-1.8); Eosinophils % (Auto) 0.1 % (0.0-4.3); Hemoglobin 14.3 gm/dl (11.8-15.2); Lymphocytes # (Auto) 1.4 K/mm3 (1.2-5.4); Lymphocytes % (Auto) 19.4 % (13.4-35.0); Mean Corpuscular HGB Conc 33 % (32-34); Mean Corpuscular Volume 87 fl (84-94); Monocytes # (Auto) 0.4 K/mm3 (0.0-0.8); Monocytes % (Auto) 4.8 % (0.0-7.3); Platelet Count 288 K/mm3 (140-440); Red Blood Count 4.95 M/mm3 (3.65-5.03)
[2020-09-21 00:01] LABS: Blood Urea Nitrogen 8 mg/dL (9-20); Calcium 9.3 mg/dL (8.4-10.2); Hemolysis Index 5
[2020-09-21 00:10] LABS: BUN/Creatinine Ratio 11
[2020-09-21] MEDS: traMADol 50 MG TAB PO PRN (01:39)
[2020-09-21] MEDS: HEPARIN 5,000 UNIT/1 ML VIAL SUB-Q SCH ×3 (06:42→21:25)
[2020-09-21] MEDS: INSULIN LISPRO 100 UNIT/ML SUB-Q SCH ×4 (09:17→22:51)
[2020-09-21] MEDS: PANTOPRAZOLE 40 MG TAB PO SCH (09:21)
--- NOTE | 2020-09-21 09:49 | Progress Note ---
Assessment and Plan Assessment and plan: -- Hypoglycemia Current Visit: Yes Status: Acute hold oral hypoglycemics Metformin and glipizide Closely monitor blood sugars, D50 IV as needed Check hemoglobin A1c, supportive care --Hypothermia Current Visit: Yes Status: Acute Patient is on Roger hugger. Tylenol 650 mg p.o. every 6 as needed. We will monitor the patient closely -- GERD (gastroesophageal reflux disease) Current Visit: Yes Status: Acute Protonix 40 mg p.o. daily Zofran 4 mg IV every 6 as needed --Constipation on CT abdomen; Stool softener, milk of magnesia as needed plenty oral fluids --Syncope Current Visit: Yes Status: Acute Probably secondary to hypoglycemia ,fall precautions. aspirin 81 mg p.o. daily Lipitor 40 mg p.o. daily. Syncope work-up, CT head, carotid Doppler, echocardiogram if needed PT evaluation and treatment and DC recommendations --Type 2 diabetes mellitus Current Visit: No Status: Chronic Currently hypoglycemic, continue to hold oral hypoglycemics glipizide Check A1c, Accu-Chek sliding scale coverage ADA diet Insulin as needed, diabetic education, nutrition education Possible home health nurse for disease monitoring at discharge --Arthritis Current Visit: Yes Status: Acute Stable. Tylenol 650 mg p.o. every 6 hours as needed --Full code --DVT prophylaxis Current Visit: Yes Status: Acute Heparin 5000 units subcu every 8 hours for the DVT prophylaxis. We will closely monitor the patient and adjust management as needed Plan of care reviewed with the patient and his nurse 09/21/2020; admitted with hypoglycemia/syncope due to hypoglycemia Sugars improved after D50 and D5W, hold diabetic medications Closely monitor, fall precautions, will check CT head without contrast History Interval history: I have seen and examined the patient at the bedside Patient's chart and medications reviewed Patient was admitted with hypoglycemia, insulin and oral hypoglycemics held Blood sugar seems slowly improving Patient has no new symptoms Hospitalist Physical - Constitutional Vitals: Temp Pulse Resp BP Pulse Ox 98.0 F 73 20 155/93 98 09/21/20 05:59 09/21/20 05:59 09/21/20 05:59 09/21/20 05:59 09/21/20 05:59 General appearance: Present: no acute distress, well-nourished - EENT Eyes: Present: PERRL, EOM intact - Neck Neck: Present: supple, normal ROM - Respiratory Respiratory effort: normal Respiratory: bilateral: diminished, negative: rales, rhonchi, wheezing - Cardiovascular Rhythm: regular Heart Sounds: Present: S1 & S2 - Extremities Extremities: no ischemia, No edema - Abdominal General gastrointestinal: soft, non-tender, non-distended, normal bowel sounds - Integumentary Integumentary: Present: clear, warm - Psychiatric Psychiatric: appropriate mood/affect, cooperative - Neurologic Neurologic: moves all extremities HEART Score - HEART Score Troponin: Troponin T < 0.010 ng/mL (0.00-0.029) 09/20/20 20:00 Results - Labs CBC & Chem 7: 09/20/20 23:16 09/20/20 23:16 Labs: Laboratory Last Values WBC 7.3 K/mm3 (4.5-11.0) 09/20/20 23:16 RBC 4.95 M/mm3 (3.65-5.03) 09/20/20 23:16 Hgb 14.3 gm/dl (11.8-15.2) 09/20/20 23:16 Hct 43.0 % (35.5-45.6) 09/20/20 23:16 MCV 87 fl (84-94) 09/20/20 23:16 MCH 29 pg (28-32) 09/20/20 23:16 MCHC 33 % (32-34) 09/20/20 23:16 RDW 14.0 % (13.2-15.2) 09/20/20 23:16 Plt Count 288 K/mm3 (140-440) 09/20/20 23:16 Lymph % (Auto) 19.4 % (13.4-35.0) 09/20/20 23:16 [place] % (Auto) 4.8 % (0.0-7.3) 09/20/20 23:16 Eos % (Auto) 0.1 % (0.0-4.3) 09/20/20 23:16 Baso % (Auto) 0.6 % (0.0-1.8) 09/20/20 23:16 Lymph # (Auto) 1.4 K/mm3 (1.2-5.4) 09/20/20 23:16 [place] # (Auto) 0.4 K/mm3 (0.0-0.8) 09/20/20 23:16 Eos # (Auto) 0.0 K/mm3 (0.0-0.4) 09/20/20 23:16 Baso # (Auto) 0.0 K/mm3 (0.0-0.1) 09/20/20 23:16 Seg Neutrophils % 75.1 % (40.0-70.0) H 09/20/20 23:16 Seg Neutrophils # 5.5 K/mm3 (1.8-7.7) 09/20/20 23:16 APTT 24.1 Sec. (24.2-36.6) L 09/20/20 20:00 Sodium 143 mmol/L (137-145) 09/20/20 23:16 Potassium 3.8 mmol/L (3.6-5.0) 09/20/20 23:16 Chloride 106.2 mmol/L (98-107) 09/20/20 23:16 Carbon Dioxide 27 mmol/L (22-30) 09/20/20 23:16 Anion Gap 14 mmol/L 09/20/20 23:16 BUN 8 mg/dL (9-20) L 09/20/20 23:16 Creatinine 0.7 mg/dL (0.8-1.3) L 09/20/20 23:16 Estimated GFR > 60 ml/min 09/20/20 23:16 BUN/Creatinine Ratio 11 % 09/20/20 23:16 Glucose 67 mg/dL (75-100) L 09/20/20 23:16 POC Glucose 100 mg/dL (70-105) 09/21/20 02:28 Lactic Acid 1.20 mmol/L (0.7-2.0) 09/20/20 23:16 Calcium 9.3 mg/dL (8.4-10.2) 09/20/20 23:16 Total Bilirubin 0.60 mg/dL (0.1-1.2) 09/20/20 20:00 AST 17 units/L (5-40) 09/20/20 20:00 ALT 13 units/L (7-56) 09/20/20 20:00 Alkaline Phosphatase 107 units/L (35-129) 09/20/20 20:00 Troponin T < 0.010 ng/mL (0.00-0.029) 09/20/20 20:00 Total Protein 7.0 g/dL (6.3-8.2) 09/20/20 20:00 Albumin 4.1 g/dL (3.9-5) 09/20/20 20:00 Albumin/Globulin Ratio 1.4 % 09/20/20 20:00 Urine Color Straw (Yellow) 09/20/20 21:10 Urine Turbidity Clear (Clear) 09/20/20 21:10 Urine pH 6.0 (5.0-7.0) 09/20/20 21:10 Ur Specific [place] 1.011 (1.003-1.030) 09/20/20 21:10 Urine Protein 30 mg/dl mg/dL (Negative) 09/20/20 21:10 Urine Glucose (UA) 50 mg/dL (Negative) 09/20/20 21:10 Urine Ketones Neg mg/dL (Negative) 09/20/20 21:10 Urine Blood Neg (Negative) 09/20/20 21:10 Urine Nitrite Neg (Negative) 09/20/20 21:10 Urine Bilirubin Neg (Negative) 09/20/20 21:10 Urine Urobilinogen < 2.0 mg/dL (<2.0) 09/20/20 21:10 Ur Leukocyte Esterase Neg (Negative) 09/20/20 21:10 Urine WBC (Auto) < 1.0 /HPF (0.0-6.0) 09/20/20 21:10 Urine RBC (Auto) < 1.0 /HPF (0.0-6.0) 09/20/20 21:10 U Epithel Cells (Auto) < 1.0 /HPF (0-13.0) 09/20/20 21:10 Urine Mucus Few /HPF 09/20/20 21:10 Microbiology: Microbiology 09/20/20 20:11 Peripheral/Venous Blood Culture - Preliminary Culture in Progress 09/20/20 20:00 Peripheral/Venous Blood Culture - Preliminary Culture in Progress [place]/IV: Voiding Method Urinal Active Medications - Current Medications Current Medications: Generic Name Dose Route Start Last Admin Trade Name Freq PRN Reason Stop Dose Admin Acetaminophen 650 mg 09/20/20 23:03 Acetaminophen 325 Mg Tab PO Q4H PRN Pain MILD(1-3)/Fever >100.5/GALVEZ Aspirin 81 mg 09/21/20 10:00 Aspirin 81 Mg Tab Chew PO QDAY [facility] Atorvastatin Calcium 40 mg 09/21/20 22:00 Atorvastatin 40 Mg Tab PO QHS [facility] Dextrose 50 ml 09/20/20 23:03 09/21/20 01:32 Dextrose 50% In Water (25gm) 50 Ml Syringe IV 50 ml Q30MIN PRN Administration Hypoglycemia Protocol Heparin Sodium (Porcine) 5,000 unit 09/21/20 06:00 09/21/20 06:42 Heparin 5,000 Unit/1 Ml Vial SUB-Q 5,000 unit Q8HR [facility] Administration Hydralazine HCl 10 mg 09/20/20 23:20 Hydralazine 20 Mg/1 Ml Inj IV Q6H PRN htn Dextrose/Sodium Chloride 1,000 mls @ 100 mls/hr 09/21/20 02:00 D5ns IV DIRECT [facility] Insulin Human Lispro 0 unit 09/21/20 07:30 09/21/20 09:17 Insulin Lispro 100 Unit/Ml SUB-Q Not Given ACHS [facility] Protocol Ondansetron HCl 4 mg 09/20/20 23:03 Ondansetron 4 Mg/2 Ml Inj IV Q8H PRN Nausea And Vomiting Pantoprazole Sodium 40 mg 09/21/20 07:30 09/21/20 09:21 Pantoprazole 40 Mg Tab PO Not Given QDAC [facility] Sodium Chloride 10 ml 09/21/20 10:00 Sodium Chloride 0.9% 10 Ml Flush Syringe IV BID [facility] Sodium Chloride 10 ml 09/20/20 23:03 Sodium Chloride 0.9% 10 Ml Flush Syringe IV PRN PRN LINE FLUSH Tramadol HCl 50 mg 09/20/20 23:03 09/21/20 01:39 Tramadol 50 Mg Tab PO 50 mg Q6H PRN Administration Pain, Moderate (4-6)
[2020-09-21] MEDS ORDERED: FAMOTIDINE 10 MG TAB PO SCH (10:00)
[2020-09-21] MEDS ORDERED: PANTOPRAZOLE 40 MG TAB PO SCH (10:00)
[2020-09-21] MEDS: ASPIRIN 81 MG TAB CHEW PO SCH ×2 (10:29→13:43)
[2020-09-21] MEDS ORDERED: MAGNESIUM HYDROXIDE (MOM) ORAL LIQD UDC PO PRN (17:55)
[2020-09-21] MEDS ORDERED: MAGNESIUM HYDROXIDE (MOM) ORAL LIQD UDC PO ONE (17:55)
--- NOTE | 2020-09-21 19:08 | Cat Scan Report ---
CT head/brain wo con INDICATION: Syncope. TECHNIQUE: Routine CT head. All CT scans at this location are performed using CT dose reduction for A TAMIKO by means of automated exposure control. COMPARISON: None. 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 Remote left PICA distrib ution lacunar infarctions. [place]-white matter differentiation is maintained. No intracranial hemorrhag e. No extra axial collection. No hydrocephalus. No herniation. Sinuses: Paranasal sinuses and mastoid air cells are essentially clear. Orbits: Globes are intact. Calvarium: No acute fracture. IMPRESSION: 1. No acute intracranial abnormality. Signer Name: Iker Stock MD Signed: 09/21/2020 7:03 PM Workstation Name: [id number]
[2020-09-21] MEDS: D5W/0.9% NACL 1,000 ML IV SCH (20:18)
[2020-09-22 00:13] LABS: Basophils % (Auto) 0.4 % (0.0-1.8); Eosinophils # (Auto) 0.1 K/mm3 (0.0-0.4); Eosinophils % (Auto) 2.1 % (0.0-4.3); Hematocrit 38.6 % (35.5-45.6); Hemoglobin 12.9 gm/dl (11.8-15.2); Lymphocytes # (Auto) 2.5 K/mm3 (1.2-5.4); Lymphocytes % (Auto) 43.2 % (13.4-35.0); Mean Corpuscular HGB Conc 33 % (32-34); Mean Corpuscular Volume 86 fl (84-94); Monocytes # (Auto) 0.3 K/mm3 (0.0-0.8); Platelet Count 267 K/mm3 (140-440); Red Blood Count 4.49 M/mm3 (3.65-5.03)
[2020-09-22 00:23] LABS: BUN/Creatinine Ratio 13; Blood Urea Nitrogen 12 mg/dL (9-20); Calcium 8.4 mg/dL (8.4-10.2); Hemolysis Index 3
[2020-09-22] MEDS: HEPARIN 5,000 UNIT/1 ML VIAL SUB-Q SCH (06:13)
[2020-09-22] MEDS: D5W/0.9% NACL 1,000 ML IV SCH (06:14)
[2020-09-22] MEDS: PANTOPRAZOLE 40 MG TAB PO SCH (08:51)
[2020-09-22] MEDS: INSULIN LISPRO 100 UNIT/ML SUB-Q SCH ×4 (08:51→22:59)
[2020-09-22] MEDS: ASPIRIN 81 MG TAB CHEW PO SCH (08:59)
[2020-09-22] MEDS ORDERED: POTASSIUM CHLORIDE ER 20 MEQ TAB PO ONE ×2 (09:17→12:00)
--- NOTE | 2020-09-22 09:18 | Progress Note ---
Assessment and Plan Assessment and plan: -- Hypoglycemia Current Visit: Yes Status: Acute hold oral hypoglycemics Metformin and glipizide Closely monitor blood sugars, D50 IV as needed Check hemoglobin A1c, supportive care --Syncope Current Visit: Yes Status: Acute Probably secondary to hypoglycemia ,fall precautions. aspirin 81 mg p.o. daily Lipitor 40 mg p.o. daily. Syncope work-up, CT head, carotid Doppler, echocardiogram if needed PT evaluation and treatment and DC recommendations --Hypothermia Current Visit: Yes Status: Acute Patient is on Roger hugger. Tylenol 650 mg p.o. every 6 as needed. We will monitor the patient closely -- GERD (gastroesophageal reflux disease) Current Visit: Yes Status: Acute Protonix 40 mg p.o. daily Zofran 4 mg IV every 6 as needed --Constipation on CT abdomen; Current Visit: Yes Status: Acute Stool softener, milk of magnesia as needed plenty oral fluids Milk of magnesia 1 dose now --Type 2 diabetes mellitus Current Visit: No Status: Chronic Currently hypoglycemic, continue to hold oral hypoglycemics glipizide Check A1c, Accu-Chek sliding scale coverage ADA diet Insulin as needed, diabetic education, nutrition education Possible home health nurse for disease monitoring at discharge --Arthritis Current Visit: Yes Status: Acute Stable. Tylenol 650 mg p.o. every 6 hours as needed --Full code --DVT prophylaxis Current Visit: Yes Status: Acute Lovenox subcu DC planning per case management; Patient lives alone, elderly, syncope, diabetes management We will closely monitor the patient and adjust management as needed Plan of care reviewed with the patient and his nurse 09/21/2020; admitted with hypoglycemia/syncope due to hypoglycemia Sugars improved after D50 and D5W, hold diabetic medications Closely monitor, fall precautions, will check CT head without contrast 09/22/2020; patient's blood sugars improved, Accu-Chek sliding scale coverage Add long-acting insulin 70/30, hemoglobin A1c is more than 10 PT evaluation and treatment, DC planning per case management History Interval history: I have seen and examined the patient at the bedside Patient's chart and medications reviewed Patient did not have any new episodes of syncope Blood sugar significantly improved Patient wants to go home Vital signs noted Hospitalist Physical - Constitutional Vitals: Temp Pulse Resp BP Pulse Ox 98.0 F 79 20 151/87 98 09/22/20 05:18 09/22/20 05:18 09/22/20 05:18 09/22/20 05:18 09/22/20 08:55 General appearance: Present: no acute distress, well-nourished, other (Confused at times) - EENT Eyes: Present: PERRL, EOM intact - Neck Neck: Present: supple, normal ROM - Respiratory Respiratory effort: normal Respiratory: bilateral: diminished, negative: rales, rhonchi, wheezing - Cardiovascular Rhythm: regular Heart Sounds: Present: S1 & S2 - Extremities Extremities: no ischemia, No edema - Abdominal General gastrointestinal: soft, non-tender, non-distended, normal bowel sounds - Integumentary Integumentary: Present: clear, warm - Psychiatric Psychiatric: appropriate mood/affect, cooperative - Neurologic Neurologic: moves all extremities HEART Score - HEART Score Troponin: Troponin T < 0.010 ng/mL (0.00-0.029) 09/21/20 23:39 Results - Labs CBC & Chem 7: 09/21/20 23:39 09/21/20 23:39 Labs: Laboratory Last Values WBC 5.7 K/mm3 (4.5-11.0) 09/21/20 23:39 RBC 4.49 M/mm3 (3.65-5.03) 09/21/20 23:39 Hgb 12.9 gm/dl (11.8-15.2) 09/21/20 23:39 Hct 38.6 % (35.5-45.6) 09/21/20 23:39 MCV 86 fl (84-94) 09/21/20 23:39 MCH 29 pg (28-32) 09/21/20 23:39 MCHC 33 % (32-34) 09/21/20 23:39 RDW 14.0 % (13.2-15.2) 09/21/20 23:39 Plt Count 267 K/mm3 (140-440) 09/21/20 23:39 Lymph % (Auto) 43.2 % (13.4-35.0) H 09/21/20 23:39 [place] % (Auto) 6.0 % (0.0-7.3) 09/21/20 23:39 Eos % (Auto) 2.1 % (0.0-4.3) 09/21/20 23:39 Baso % (Auto) 0.4 % (0.0-1.8) 09/21/20 23:39 Lymph # (Auto) 2.5 K/mm3 (1.2-5.4) 09/21/20 23:39 [place] # (Auto) 0.3 K/mm3 (0.0-0.8) 09/21/20 23:39 Eos # (Auto) 0.1 K/mm3 (0.0-0.4) 09/21/20 23:39 Baso # (Auto) 0.0 K/mm3 (0.0-0.1) 09/21/20 23:39 Seg Neutrophils % 48.3 % (40.0-70.0) 09/21/20 23:39 Seg Neutrophils # 2.7 K/mm3 (1.8-7.7) 09/21/20 23:39 APTT 24.1 Sec. (24.2-36.6) L 09/20/20 20:00 Sodium 139 mmol/L (137-145) 09/21/20 23:39 Potassium 3.4 mmol/L (3.6-5.0) L 09/21/20 23:39 Chloride 103.5 mmol/L (98-107) 09/21/20 23:39 Carbon Dioxide 27 mmol/L (22-30) 09/21/20 23:39 Anion Gap 12 mmol/L 09/21/20 23:39 BUN 12 mg/dL (9-20) 09/21/20 23:39 Creatinine 0.9 mg/dL (0.8-1.3) 09/21/20 23:39 Estimated GFR > 60 ml/min 09/21/20 23:39 BUN/Creatinine Ratio 13 % 09/21/20 23:39 Glucose 283 mg/dL (75-100) H 09/21/20 23:39 POC Glucose 281 mg/dL (70-105) H 09/21/20 22:21 Hemoglobin A1c 10.4 % (4-6) H 09/21/20 23:39 Lactic Acid 1.20 mmol/L (0.7-2.0) 09/20/20 23:16 Calcium 8.4 mg/dL (8.4-10.2) 09/21/20 23:39 Total Bilirubin 0.60 mg/dL (0.1-1.2) 09/20/20 20:00 AST 17 units/L (5-40) 09/20/20 20:00 ALT 13 units/L (7-56) 09/20/20 20:00 Alkaline Phosphatase 107 units/L (35-129) 09/20/20 20:00 Troponin T < 0.010 ng/mL (0.00-0.029) 09/21/20 23:39 Total Protein 7.0 g/dL (6.3-8.2) 09/20/20 20:00 Albumin 4.1 g/dL (3.9-5) 09/20/20 20:00 Albumin/Globulin Ratio 1.4 % 09/20/20 20:00 Urine Color Straw (Yellow) 09/20/20 21:10 Urine Turbidity Clear (Clear) 09/20/20 21:10 Urine pH 6.0 (5.0-7.0) 09/20/20 21:10 Ur Specific [place] 1.011 (1.003-1.030) 09/20/20 21:10 Urine Protein 30 mg/dl mg/dL (Negative) 09/20/20 21:10 Urine Glucose (UA) 50 mg/dL (Negative) 09/20/20 21:10 Urine Ketones Neg mg/dL (Negative) 09/20/20 21:10 Urine Blood Neg (Negative) 09/20/20 21:10 Urine Nitrite Neg (Negative) 09/20/20 21:10 Urine Bilirubin Neg (Negative) 09/20/20 21:10 Urine Urobilinogen < 2.0 mg/dL (<2.0) 09/20/20 21:10 Ur Leukocyte Esterase Neg (Negative) 09/20/20 21:10 Urine WBC (Auto) < 1.0 /HPF (0.0-6.0) 09/20/20 21:10 Urine RBC (Auto) < 1.0 /HPF (0.0-6.0) 09/20/20 21:10 U Epithel Cells (Auto) < 1.0 /HPF (0-13.0) 09/20/20 21:10 Urine Mucus Few /HPF 09/20/20 21:10 Microbiology: Microbiology 09/20/20 20:11 Peripheral/Venous Blood Culture - Preliminary NO GROWTH AFTER 24 HOURS 09/20/20 20:00 Peripheral/Venous Blood Culture - Preliminary NO GROWTH AFTER 24 HOURS Duron/IV: Voiding Method Urinal Active Medications - Current Medications Current Medications: Generic Name Dose Route Start Last Admin Trade Name Freq PRN Reason Stop Dose Admin Acetaminophen 650 mg 09/20/20 23:03 Acetaminophen 325 Mg Tab PO Q4H PRN Pain MILD(1-3)/Fever >100.5/GALVEZ Aspirin 81 mg 09/21/20 10:00 09/22/20 08:59 Aspirin 81 Mg Tab Chew PO 81 mg QDAY MINERVA Administration Atorvastatin Calcium 40 mg 09/21/20 22:00 09/21/20 21:25 Atorvastatin 40 Mg Tab PO 40 mg QHS MINERVA Administration Dextrose 50 ml 09/20/20 23:03 09/21/20 01:32 Dextrose 50% In Water (25gm) 50 Ml Syringe IV 50 ml Q30MIN PRN Administration Hypoglycemia Protocol Heparin Sodium (Porcine) 5,000 unit 09/21/20 06:00 09/22/20 06:13 Heparin 5,000 Unit/1 Ml Vial SUB-Q 5,000 unit Q8HR MINERVA Administration Hydralazine HCl 10 mg 09/20/20 23:20 Hydralazine 20 Mg/1 Ml Inj IV Q6H PRN htn Insulin Human Lispro 0 unit 09/21/20 07:30 09/22/20 08:51 Insulin Lispro 100 Unit/Ml SUB-Q 2 unit ACHS MINERVA Administration Protocol Magnesium Hydroxide 30 ml 09/21/20 17:55 Magnesium Hydroxide (Mom) Oral Liqd Udc PO QDAY PRN Constipation Ondansetron HCl 4 mg 09/20/20 23:03 Ondansetron 4 Mg/2 Ml Inj IV Q8H PRN Nausea And Vomiting Pantoprazole Sodium 40 mg 09/21/20 07:30 09/22/20 08:51 Pantoprazole 40 Mg Tab PO 40 mg QDAC MINERVA Administration Potassium Chloride 40 meq 09/22/20 09:17 Potassium Chloride Er 20 Meq Tab PO 09/22/20 09:18 ONCE ONE Sodium Chloride 10 ml 09/21/20 10:00 09/21/20 21:26 Sodium Chloride 0.9% 10 Ml Flush Syringe IV 10 ml BID MNIERVA Administration Sodium Chloride 10 ml 09/20/20 23:03 Sodium Chloride 0.9% 10 Ml Flush Syringe IV PRN PRN LINE FLUSH Tramadol HCl 50 mg 09/20/20 23:03 09/21/20 01:39 Tramadol 50 Mg Tab PO 50 mg Q6H PRN Administration Pain, Moderate (4-6) Nutrition/Malnutrition Assess - Dietary Evaluation Nutrition/Malnutrition Findings: Nutrition Notes Start: 09/21/20 10:45 Freq: Status: Active Protocol: Document 09/21/20 10:45 LP (Rec: 09/21/20 10:46 LP [id number]) Nutrition Notes Need for Assessment generated from: MD Order Initial or Follow up Brief Note Current Diagnosis Diabetes Subjective/Other Information Consult for diet education. Pt NPO for procedure. Unable to give education at this time. Nutrition Intervention Follow-Up By: 09/23/20 Additional Comments Follow for diet education needs
[2020-09-22] MEDS: MAGNESIUM HYDROXIDE (MOM) ORAL LIQD UDC PO ONE ×2 (13:26→15:03)
[2020-09-22] MEDS ORDERED: DOCUSATE SODIUM 100 MG CAP PO ONE (14:00)
[2020-09-22] MEDS: INSULIN NPH/REGULAR 70/30 INJ SUB-Q SCH (17:19)
[2020-09-22] MEDS: ENOXAPARIN 40 MG/0.4 ML INJ SUB-Q SCH (21:13)
[2020-09-23] MEDS: traMADol 50 MG TAB PO PRN ×2 (01:55→21:50)
[2020-09-23] MEDS: SIMETHICONE 80 MG CHEW TAB PO SCH ×3 (07:12→21:50)
[2020-09-23] MEDS: PANTOPRAZOLE 40 MG TAB PO SCH (08:39)
[2020-09-23] MEDS: INSULIN LISPRO 100 UNIT/ML SUB-Q SCH ×4 (08:40→21:50)
[2020-09-23] MEDS: INSULIN NPH/REGULAR 70/30 INJ SUB-Q SCH (08:40)
[2020-09-23] MEDS: ASPIRIN 81 MG TAB CHEW PO SCH (09:54)
--- NOTE | 2020-09-23 10:16 | Progress Note ---
Assessment and Plan Assessment and plan: 85-year-old male patient admitted with hypoglycemia syncopal episode ,, patient is on fall precautions , syncope work-up so far is negative Pending PT OT evaluation and discharge planning -- Hypoglycemia present on admission/improved Current Visit: Yes Status: Acute hold oral hypoglycemics Metformin and glipizide Accu-Chek sliding scale coverage ADA diet Long-acting insulin 70/30 Novolin 10 units twice a day Blood sugars uncontrolled, increase dose to 14 units twice a day Check hemoglobin A1c, supportive care --Syncope Current Visit: Yes Status: Acute Probably secondary to hypoglycemia ,fall precautions. aspirin 81 mg p.o. daily Lipitor 40 mg p.o. daily. Syncope work-up, CT head, carotid Doppler, echocardiogram if needed PT evaluation and treatment and DC recommendations --Hypothermia Current Visit: Yes Status: Acute Patient is on Roger hugger. Tylenol 650 mg p.o. every 6 as needed. We will monitor the patient closely -- GERD (gastroesophageal reflux disease) Current Visit: Yes Status: Acute Protonix 40 mg p.o. daily Zofran 4 mg IV every 6 as needed --Constipation on CT abdomen; Current Visit: Yes Status: Acute Stool softener, milk of magnesia as needed plenty oral fluids Milk of magnesia 1 dose now --Type 2 diabetes mellitus Current Visit: No Status: Chronic Currently hypoglycemic, continue to hold oral hypoglycemics glipizide Check A1c, Accu-Chek sliding scale coverage ADA diet Insulin as needed, diabetic education, nutrition education Possible home health nurse for disease monitoring at discharge --Arthritis Current Visit: Yes Status: Acute Stable. Tylenol 650 mg p.o. every 6 hours as needed --Full code --DVT prophylaxis Current Visit: Yes Status: Acute Lovenox subcu DC planning per case management; Patient lives alone, elderly, syncope, diabetes management We will closely monitor the patient and adjust management as needed Plan of care reviewed with the patient and his nurse 09/21/2020; admitted with hypoglycemia/syncope due to hypoglycemia Sugars improved after D50 and D5W, hold diabetic medications Closely monitor, fall precautions, will check CT head without contrast 09/22/2020; patient's blood sugars improved, Accu-Chek sliding scale coverage Add long-acting insulin 70/30, hemoglobin A1c is more than 10 PT evaluation and treatment, DC planning per case management History Interval history: I have seen and examined the patient at the bedside Patient's chart and medications reviewed Patient feels better No new episodes of syncope No new episodes of hypoglycemia Vital signs Hospitalist Physical - Constitutional Vitals: Temp Pulse Resp BP Pulse Ox 97.5 F L 75 20 166/92 98 09/23/20 06:30 09/23/20 06:30 09/23/20 06:30 09/23/20 06:30 09/23/20 06:30 General appearance: Present: no acute distress, well-nourished - EENT Eyes: Present: PERRL, EOM intact - Neck Neck: Present: supple, normal ROM - Respiratory Respiratory effort: normal Respiratory: bilateral: diminished, negative: rales, rhonchi, wheezing - Cardiovascular Rhythm: regular Heart Sounds: Present: S1 & S2 - Extremities Extremities: no ischemia, No edema - Abdominal General gastrointestinal: soft, non-tender, non-distended, normal bowel sounds - Integumentary Integumentary: Present: clear, warm - Psychiatric Psychiatric: appropriate mood/affect, cooperative - Neurologic Neurologic: moves all extremities HEART Score - HEART Score Troponin: Troponin T < 0.010 ng/mL (0.00-0.029) 09/21/20 23:39 Results - Labs CBC & Chem 7: 09/21/20 23:39 09/23/20 14:32 Labs: Laboratory Last Values WBC 5.7 K/mm3 (4.5-11.0) 09/21/20 23:39 RBC 4.49 M/mm3 (3.65-5.03) 09/21/20 23:39 Hgb 12.9 gm/dl (11.8-15.2) 09/21/20 23:39 Hct 38.6 % (35.5-45.6) 09/21/20 23:39 MCV 86 fl (84-94) 09/21/20 23:39 MCH 29 pg (28-32) 09/21/20 23:39 MCHC 33 % (32-34) 09/21/20 23:39 RDW 14.0 % (13.2-15.2) 09/21/20 23:39 Plt Count 267 K/mm3 (140-440) 09/21/20 23:39 Lymph % (Auto) 43.2 % (13.4-35.0) H 09/21/20 23:39 [place] % (Auto) 6.0 % (0.0-7.3) 09/21/20 23:39 Eos % (Auto) 2.1 % (0.0-4.3) 09/21/20 23:39 Baso % (Auto) 0.4 % (0.0-1.8) 09/21/20 23:39 Lymph # (Auto) 2.5 K/mm3 (1.2-5.4) 09/21/20 23:39 [place] # (Auto) 0.3 K/mm3 (0.0-0.8) 09/21/20 23:39 Eos # (Auto) 0.1 K/mm3 (0.0-0.4) 09/21/20 23:39 Baso # (Auto) 0.0 K/mm3 (0.0-0.1) 09/21/20 23:39 Seg Neutrophils % 48.3 % (40.0-70.0) 09/21/20 23:39 Seg Neutrophils # 2.7 K/mm3 (1.8-7.7) 09/21/20 23:39 APTT 24.1 Sec. (24.2-36.6) L 09/20/20 20:00 Sodium 139 mmol/L (137-145) 09/21/20 23:39 Potassium 3.4 mmol/L (3.6-5.0) L 09/21/20 23:39 Chloride 103.5 mmol/L (98-107) 09/21/20 23:39 Carbon Dioxide 27 mmol/L (22-30) 09/21/20 23:39 Anion Gap 12 mmol/L 09/21/20 23:39 BUN 12 mg/dL (9-20) 09/21/20 23:39 Creatinine 0.9 mg/dL (0.8-1.3) 09/21/20 23:39 Estimated GFR > 60 ml/min 09/21/20 23:39 BUN/Creatinine Ratio 13 % 09/21/20 23:39 Glucose 283 mg/dL (75-100) H 09/21/20 23:39 POC Glucose 192 mg/dL (70-105) H 09/23/20 07:51 Hemoglobin A1c 10.4 % (4-6) H 09/21/20 23:39 Lactic Acid 1.20 mmol/L (0.7-2.0) 09/20/20 23:16 Calcium 8.4 mg/dL (8.4-10.2) 09/21/20 23:39 Total Bilirubin 0.60 mg/dL (0.1-1.2) 09/20/20 20:00 AST 17 units/L (5-40) 09/20/20 20:00 ALT 13 units/L (7-56) 09/20/20 20:00 Alkaline Phosphatase 107 units/L (35-129) 09/20/20 20:00 Troponin T < 0.010 ng/mL (0.00-0.029) 09/21/20 23:39 Total Protein 7.0 g/dL (6.3-8.2) 09/20/20 20:00 Albumin 4.1 g/dL (3.9-5) 09/20/20 20:00 Albumin/Globulin Ratio 1.4 % 09/20/20 20:00 Urine Color Straw (Yellow) 09/20/20 21:10 Urine Turbidity Clear (Clear) 09/20/20 21:10 Urine pH 6.0 (5.0-7.0) 09/20/20 21:10 Ur Specific [place] 1.011 (1.003-1.030) 09/20/20 21:10 Urine Protein 30 mg/dl mg/dL (Negative) 09/20/20 21:10 Urine Glucose (UA) 50 mg/dL (Negative) 09/20/20 21:10 Urine Ketones Neg mg/dL (Negative) 09/20/20 21:10 Urine Blood Neg (Negative) 09/20/20 21:10 Urine Nitrite Neg (Negative) 09/20/20 21:10 Urine Bilirubin Neg (Negative) 09/20/20 21:10 Urine Urobilinogen < 2.0 mg/dL (<2.0) 09/20/20 21:10 Ur Leukocyte Esterase Neg (Negative) 09/20/20 21:10 Urine WBC (Auto) < 1.0 /HPF (0.0-6.0) 09/20/20 21:10 Urine RBC (Auto) < 1.0 /HPF (0.0-6.0) 09/20/20 21:10 U Epithel Cells (Auto) < 1.0 /HPF (0-13.0) 09/20/20 21:10 Urine Mucus Few /HPF 09/20/20 21:10 Microbiology: Microbiology 09/20/20 20:11 Peripheral/Venous Blood Culture - Preliminary NO GROWTH AFTER 48 HOURS 09/20/20 20:00 Peripheral/Venous Blood Culture - Preliminary NO GROWTH AFTER 48 HOURS 09/20/20 21:10 Urine,Clean Catch Urine Culture - Preliminary Duron/IV: Voiding Method Urinal Active Medications - Current Medications Current Medications: Generic Name Dose Route Start Last Admin Trade Name Freq PRN Reason Stop Dose Admin Acetaminophen 650 mg 09/20/20 23:03 Acetaminophen 325 Mg Tab PO Q4H PRN Pain MILD(1-3)/Fever >100.5/GALVEZ Aspirin 81 mg 09/21/20 10:00 09/23/20 09:54 Aspirin 81 Mg Tab Chew PO 81 mg QDAY MINERVA Administration Atorvastatin Calcium 40 mg 09/21/20 22:00 09/22/20 21:12 Atorvastatin 40 Mg Tab PO 40 mg QHS MINERVA Administration Dextrose 50 ml 09/20/20 23:03 09/21/20 01:32 Dextrose 50% In Water (25gm) 50 Ml Syringe IV 50 ml Q30MIN PRN Administration Hypoglycemia Protocol Enoxaparin Sodium 40 mg 09/22/20 22:00 09/22/20 21:13 Enoxaparin 40 Mg/0.4 Ml Inj SUB-Q 40 mg QDAY@2200 MINERVA Administration Protocol Hydralazine HCl 10 mg 09/20/20 23:20 Hydralazine 20 Mg/1 Ml Inj IV Q6H PRN htn Insulin Human Isoph/Insulin Regular 10 unit 09/22/20 17:00 09/23/20 08:40 Insulin Nph/Regular 70/30 Inj SUB-Q 10 unit BIDDIAB MINERVA Administration Insulin Human Lispro 0 unit 09/21/20 07:30 09/23/20 08:40 Insulin Lispro 100 Unit/Ml SUB-Q Not Given ACHS MINERVA Protocol Magnesium Hydroxide 30 ml 09/21/20 17:55 Magnesium Hydroxide (Mom) Oral Liqd Udc PO QDAY PRN Constipation Ondansetron HCl 4 mg 09/20/20 23:03 Ondansetron 4 Mg/2 Ml Inj IV Q8H PRN Nausea And Vomiting Pantoprazole Sodium 40 mg 09/21/20 07:30 09/23/20 08:39 Pantoprazole 40 Mg Tab PO 40 mg QDAC MINERVA Administration Simethicone 80 mg 09/23/20 03:00 09/23/20 09:54 Simethicone 80 Mg Chew Tab PO 80 mg BID MINERVA Administration Sodium Chloride 10 ml 09/21/20 10:00 09/23/20 09:54 Sodium Chloride 0.9% 10 Ml Flush Syringe IV 10 ml BID MINERVA Administration Sodium Chloride 10 ml 09/20/20 23:03 Sodium Chloride 0.9% 10 Ml Flush Syringe IV PRN PRN LINE FLUSH Tramadol HCl 50 mg 09/20/20 23:03 09/23/20 01:55 Tramadol 50 Mg Tab PO 50 mg Q6H PRN Administration Pain, Moderate (4-6) Nutrition/Malnutrition Assess - Dietary Evaluation Nutrition/Malnutrition Findings: Nutrition Notes Start: 09/21/20 10:45 Freq: Status: Active Protocol: Document 09/21/20 10:45 LP (Rec: 09/21/20 10:46 LP [id number]) Nutrition Notes Need for Assessment generated from: MD Order Initial or Follow up Brief Note Current Diagnosis Diabetes Subjective/Other Information Consult for diet education. Pt NPO for procedure. Unable to give education at this time. Nutrition Intervention Follow-Up By: 09/23/20 Additional Comments Follow for diet education needs
--- NOTE | 2020-09-23 11:00 | Vascular Lab Report ---
CLINICAL DATA: Syncope TECHNICAL DATA: Imaging was performed from the base of the neck to the skull base using duplex sonography and color-f low imaging with emphasis on the carotid and vertebral arterial systems. RIGHT CAROTID ARTERY: The right internal carotid artery, right external carotid, and right common carotid artery all well i cholo and patent. Mild atherosclerotic plaque present at the carotid bifurcation. Right common carotid artery peak systolic velocity 105 cm/sec Right internal carotid artery peak systolic velocity 56 cm/sec Right internal carotid artery end diastolic velocity 18cm/sec Right internal carotid artery/right common carotid artery ratio 0.6 Vertebral artery flow is antegrade. LEFT CAROTID ARTERY The left internal carotid artery, left external carotid, and left common carotid artery all well imag ed and patent. Mild atherosclerotic plaque present at the carotid bifurcation. Left common carotid artery peak systolic velocity 101 cm/sec Left internal carotid artery peak systolic velocity 62 cm/sec Left internal carotid artery end diastolic velocity 15 cm/sec Left internal carotid artery/right common carotid artery ratio 0.6 Normal antegrade flow of the vertebral arteries. IMPRESSION: 1. Sonographic NASCET Index This study proposed the incorporation of distal ICA flow velocity information on the conventional car otid Doppler study improving the diagnostic accuracy of PSV 1. Right and left internal carotid arteries demonstrate <15% stenosis: * deceleration spectral broadening with a peak systolic velocity (PSV) <125 cm/s . 2. Less than 50% stenosis common carotid arteries. 3. Less than 50% stenosis external carotid arteries. 4. Antegrade flow both vertebral arteries. Signer Name: Bowen Hickman MD Signed: 09/23/2020 10:55 AM Workstation Name: [id number]
[2020-09-23] MEDS ORDERED: INSULIN NPH/REGULAR 70/30 INJ SUB-Q SCH (12:59)
[2020-09-23] MEDS ORDERED: INSULIN NPH/REGULAR 70/30 INJ SUB-Q ONE (17:29)
[2020-09-24] MEDS: ENOXAPARIN 40 MG/0.4 ML INJ SUB-Q SCH ×2 (00:44→21:58)
[2020-09-24] MEDS: PANTOPRAZOLE 40 MG TAB PO SCH (08:57)
[2020-09-24] MEDS: INSULIN LISPRO 100 UNIT/ML SUB-Q SCH ×4 (08:58→22:13)
[2020-09-24] MEDS: ASPIRIN 81 MG TAB CHEW PO SCH (09:00)
[2020-09-24] MEDS: SIMETHICONE 80 MG CHEW TAB PO SCH ×2 (09:00→21:58)
[2020-09-24] MEDS: INSULIN NPH/REGULAR 70/30 INJ SUB-Q SCH ×3 (09:03→17:46)
--- NOTE | 2020-09-24 09:44 | Progress Note ---
Assessment and Plan Assessment and plan: 85-year-old male patient admitted with hypoglycemia syncopal episode ,, patient is on fall precautions , syncope work-up so far is negative PT evaluated the patient and recommend subacute rehab which patient refused, I spoke with patient's son NISHA Vickers about the discharge planning, and advised him to have some helper at least for 1 to 2 weeks with him. Case management set up senior helpers to assist him and also for diabetes management Home health nurse -- Hypoglycemia present on admission/improved Current Visit: Yes Status: Acute hold oral hypoglycemics Metformin and glipizide Monitor blood sugars --Type 2 diabetes mellitus/A1c 10.4 Current Visit: Yes Status: Acute Accu-Chek sliding scale coverage ADA diet Long-acting insulin 70/30 Novolin 10 units twice a day Blood sugars uncontrolled, increase dose to 14 units twice a day Home health nurse at discharge for disease monitoring --Syncope Current Visit: Yes Status: Acute Probably secondary to hypoglycemia ,fall precautions. aspirin 81 mg p.o. daily Lipitor 40 mg p.o. daily. Syncope work-up, CT head, carotid Doppler, echocardiogram, Negative --Hypothermia present on admission Current Visit: Yes Status: Acute Resolved -- GERD (gastroesophageal reflux disease) Current Visit: Yes Status: Acute Protonix 40 mg p.o. daily Zofran 4 mg IV every 6 as needed --Constipation on CT abdomen; Current Visit: Yes Status: Acute Stool softener, milk of magnesia as needed plenty oral fluids Milk of magnesia 1 dose now --Arthritis Current Visit: Yes Status: Acute Stable. Tylenol 650 mg p.o. every 6 hours as needed --Full code --DVT prophylaxis Current Visit: Yes Status: Acute Lovenox subcu DC planning per case management; Patient lives alone, elderly, syncope, diabetes management Patient refused subacute rehab placement Discussed with patient's son NISHA Vickers We will closely monitor the patient and adjust management as needed Plan of care reviewed with the patient and his nurse 09/21/2020; admitted with hypoglycemia/syncope due to hypoglycemia Sugars improved after D50 and D5W, hold diabetic medications Closely monitor, fall precautions, will check CT head without contrast 09/22/2020; patient's blood sugars improved, Accu-Chek sliding scale coverage Add long-acting insulin 70/30, hemoglobin A1c is more than 10 PT evaluation and treatment, DC planning per case management 09/23/2020; patient has been refusing treatment intermittently PT evaluated recommended subacute rehab 09/24/2020; CM and I personally discussed in detail with patient's son NISHA Raya Patient's condition treatment and discharge planning, that we recommend some caregiver To be with the patient at least for 2 weeks and to help him with diabetes management And prevent the risk of falls, he verbalized understanding and said he would take care of it Possible discharge home tomorrow with home health services, senior visiting services And patient's son to assist the patient with safe DC planning. History Interval history: I have seen and examined the patient at the bedside Patient is severely agitated wants to go home Refusing medications and tests I and case management and the patient's nurse Explained to him that he will be discharged tomorrow when he gets slightly better Patient calmed down Vital signs noted Hospitalist Physical - Constitutional Vitals: Temp Pulse Resp BP Pulse Ox 98.1 F 76 18 114/79 97 09/24/20 05:09 09/24/20 05:09 09/24/20 05:09 09/24/20 05:09 09/24/20 05:09 General appearance: Present: no acute distress, well-nourished - EENT Eyes: Present: PERRL, EOM intact - Neck Neck: Present: supple, normal ROM - Respiratory Respiratory effort: normal Respiratory: bilateral: diminished, negative: rales, rhonchi - Cardiovascular Rhythm: regular Heart Sounds: Present: S1 & S2 - Extremities Extremities: no ischemia, No edema - Abdominal General gastrointestinal: soft, non-tender, non-distended, normal bowel sounds - Integumentary Integumentary: Present: clear, warm - Psychiatric Psychiatric: appropriate mood/affect, cooperative, agitated (Sometimes) - Neurologic Neurologic: moves all extremities HEART Score - HEART Score Troponin: Troponin T < 0.010 ng/mL (0.00-0.029) 09/21/20 23:39 Results - Labs CBC & Chem 7: 09/21/20 23:39 09/23/20 14:32 Labs: Laboratory Last Values WBC 5.7 K/mm3 (4.5-11.0) 09/21/20 23:39 RBC 4.49 M/mm3 (3.65-5.03) 09/21/20 23:39 Hgb 12.9 gm/dl (11.8-15.2) 09/21/20 23:39 Hct 38.6 % (35.5-45.6) 09/21/20 23:39 MCV 86 fl (84-94) 09/21/20 23:39 MCH 29 pg (28-32) 09/21/20 23:39 MCHC 33 % (32-34) 09/21/20 23:39 RDW 14.0 % (13.2-15.2) 09/21/20 23:39 Plt Count 267 K/mm3 (140-440) 09/21/20 23:39 Lymph % (Auto) 43.2 % (13.4-35.0) H 09/21/20 23:39 [place] % (Auto) 6.0 % (0.0-7.3) 09/21/20 23:39 Eos % (Auto) 2.1 % (0.0-4.3) 09/21/20 23:39 Baso % (Auto) 0.4 % (0.0-1.8) 09/21/20 23:39 Lymph # (Auto) 2.5 K/mm3 (1.2-5.4) 09/21/20 23:39 [place] # (Auto) 0.3 K/mm3 (0.0-0.8) 09/21/20 23:39 Eos # (Auto) 0.1 K/mm3 (0.0-0.4) 09/21/20 23:39 Baso # (Auto) 0.0 K/mm3 (0.0-0.1) 09/21/20 23:39 Seg Neutrophils % 48.3 % (40.0-70.0) 09/21/20 23:39 Seg Neutrophils # 2.7 K/mm3 (1.8-7.7) 09/21/20 23:39 APTT 24.1 Sec. (24.2-36.6) L 09/20/20 20:00 Sodium 139 mmol/L (137-145) 09/21/20 23:39 Potassium 4.2 mmol/L (3.6-5.0) D 09/23/20 14:32 Chloride 103.5 mmol/L (98-107) 09/21/20 23:39 Carbon Dioxide 27 mmol/L (22-30) 09/21/20 23:39 Anion Gap 12 mmol/L 09/21/20 23:39 BUN 12 mg/dL (9-20) 09/21/20 23:39 Creatinine 0.9 mg/dL (0.8-1.3) 09/21/20 23:39 Estimated GFR > 60 ml/min 09/21/20 23:39 BUN/Creatinine Ratio 13 % 09/21/20 23:39 Glucose 283 mg/dL (75-100) H 09/21/20 23:39 POC Glucose 156 mg/dL (70-105) H 09/24/20 07:34 Hemoglobin A1c 10.4 % (4-6) H 09/21/20 23:39 Lactic Acid 1.20 mmol/L (0.7-2.0) 09/20/20 23:16 Calcium 8.4 mg/dL (8.4-10.2) 09/21/20 23:39 Magnesium 2.20 mg/dL (1.7-2.3) 09/23/20 14:32 Total Bilirubin 0.60 mg/dL (0.1-1.2) 09/20/20 20:00 AST 17 units/L (5-40) 09/20/20 20:00 ALT 13 units/L (7-56) 09/20/20 20:00 Alkaline Phosphatase 107 units/L (35-129) 09/20/20 20:00 Troponin T < 0.010 ng/mL (0.00-0.029) 09/21/20 23:39 Total Protein 7.0 g/dL (6.3-8.2) 09/20/20 20:00 Albumin 4.1 g/dL (3.9-5) 09/20/20 20:00 Albumin/Globulin Ratio 1.4 % 09/20/20 20:00 Urine Color Straw (Yellow) 09/20/20 21:10 Urine Turbidity Clear (Clear) 09/20/20 21:10 Urine pH 6.0 (5.0-7.0) 09/20/20 21:10 Ur Specific [place] 1.011 (1.003-1.030) 09/20/20 21:10 Urine Protein 30 mg/dl mg/dL (Negative) 09/20/20 21:10 Urine Glucose (UA) 50 mg/dL (Negative) 09/20/20 21:10 Urine Ketones Neg mg/dL (Negative) 09/20/20 21:10 Urine Blood Neg (Negative) 09/20/20 21:10 Urine Nitrite Neg (Negative) 09/20/20 21:10 Urine Bilirubin Neg (Negative) 09/20/20 21:10 Urine Urobilinogen < 2.0 mg/dL (<2.0) 09/20/20 21:10 Ur Leukocyte Esterase Neg (Negative) 09/20/20 21:10 Urine WBC (Auto) < 1.0 /HPF (0.0-6.0) 09/20/20 21:10 Urine RBC (Auto) < 1.0 /HPF (0.0-6.0) 09/20/20 21:10 U Epithel Cells (Auto) < 1.0 /HPF (0-13.0) 09/20/20 21:10 Urine Mucus Few /HPF 09/20/20 21:10 Microbiology: Microbiology 09/20/20 20:11 Peripheral/Venous Blood Culture - Preliminary NO GROWTH AFTER 72 HOURS 09/20/20 20:00 Peripheral/Venous Blood Culture - Preliminary NO GROWTH AFTER 72 HOURS 09/20/20 21:10 Urine,Clean Catch Urine Culture - Final [place]/IV: Voiding Method Urinal Active Medications - Current Medications Current Medications: Generic Name Dose Route Start Last Admin Trade Name Freq PRN Reason Stop Dose Admin Acetaminophen 650 mg 09/20/20 23:03 Acetaminophen 325 Mg Tab PO Q4H PRN Pain MILD(1-3)/Fever >100.5/GALVEZ Aspirin 81 mg 09/21/20 10:00 09/24/20 09:00 Aspirin 81 Mg Tab Chew PO 81 mg QDAY MINERVA Administration Atorvastatin Calcium 40 mg 09/21/20 22:00 09/23/20 21:50 Atorvastatin 40 Mg Tab PO 40 mg QHS MINERVA Administration Dextrose 50 ml 09/20/20 23:03 09/21/20 01:32 Dextrose 50% In Water (25gm) 50 Ml Syringe IV 50 ml Q30MIN PRN Administration Hypoglycemia Protocol Enoxaparin Sodium 40 mg 09/22/20 22:00 09/24/20 00:44 Enoxaparin 40 Mg/0.4 Ml Inj SUB-Q 40 mg QDAY@2200 MINERVA Administration Protocol Hydralazine HCl 10 mg 09/20/20 23:20 Hydralazine 20 Mg/1 Ml Inj IV Q6H PRN htn Insulin Human Isoph/Insulin Regular 14 unit 09/24/20 08:00 09/24/20 09:03 Insulin Nph/Regular 70/30 Inj SUB-Q 14 unit BIDDIAB MINERVA Administration Insulin Human Lispro 0 unit 09/21/20 07:30 09/24/20 08:58 Insulin Lispro 100 Unit/Ml SUB-Q 1 unit ACHS MINERVA Administration Protocol Magnesium Hydroxide 30 ml 09/21/20 17:55 Magnesium Hydroxide (Mom) Oral Liqd Udc PO QDAY PRN Constipation Ondansetron HCl 4 mg 09/20/20 23:03 Ondansetron 4 Mg/2 Ml Inj IV Q8H PRN Nausea And Vomiting Pantoprazole Sodium 40 mg 09/21/20 07:30 09/24/20 08:57 Pantoprazole 40 Mg Tab PO 40 mg QDAC MINERVA Administration Simethicone 80 mg 09/23/20 03:00 09/24/20 09:00 Simethicone 80 Mg Chew Tab PO 80 mg BID MINERVA Administration Sodium Chloride 10 ml 09/21/20 10:00 09/23/20 21:50 Sodium Chloride 0.9% 10 Ml Flush Syringe IV 10 ml BID MINERVA Administration Sodium Chloride 10 ml 09/20/20 23:03 Sodium Chloride 0.9% 10 Ml Flush Syringe IV PRN PRN LINE FLUSH Tramadol HCl 50 mg 09/20/20 23:03 09/23/20 21:50 Tramadol 50 Mg Tab PO 50 mg Q6H PRN Administration Pain, Moderate (4-6) Nutrition/Malnutrition Assess - Dietary Evaluation Nutrition/Malnutrition Findings: Nutrition Notes Start: 09/21/20 10:45 Freq: Status: Active Protocol: Document 09/23/20 14:08 AL (Rec: 09/23/20 14:10 AL [id number]) Co-Sign 09/23/20 14:08 LP Nutrition Notes Need for Assessment generated from: MD Order Initial or Follow up Brief Note Current Diagnosis Diabetes Other Pertinent Diagnosis PUD, GERD, arthritis Current Diet Regular Diet Subjective/Other Information Consult for diet education. Pt was in therapy at time of visit. Unable to complete diet education. Nutrition Intervention Follow-Up By: 09/24/20 Additional Comments Follow for diet education needs
--- NOTE | 2020-09-24 10:05 | Electrocardiograph Report ---
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
--- NOTE | 2020-09-24 10:39 | Electrocardiograph Report ---
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
[2020-09-24] MEDS: traMADol 50 MG TAB PO PRN (21:58)
[2020-09-25 04:47] VITALS: BP 149/87
[2020-09-25] MEDS ORDERED: INSULIN NPH/REGULAR 70/30 INJ SUB-Q SCH (08:00)
[2020-09-25] MEDS: PANTOPRAZOLE 40 MG TAB PO SCH (08:50)
[2020-09-25] MEDS: ASPIRIN 81 MG TAB CHEW PO SCH ×2 (08:51→09:48)
[2020-09-25] MEDS: INSULIN LISPRO 100 UNIT/ML SUB-Q SCH ×2 (08:51→13:38)
[2020-09-25] MEDS: SIMETHICONE 80 MG CHEW TAB PO SCH ×2 (08:51→09:48)
--- NOTE | 2020-09-25 10:47 | Discharge Summary ---
Providers - Providers Date of Admission: 09/22/20 09:25 Date of discharge: 09/25/20 Attending physician: ANA POND 09/20/20 Consult to Cardiac Rehabilitation [CONS] Routine Reason For Exam: Phase I 09/20/20 23:03 Consult to Dietitian/Nutrition [CONS] Routine Physician Instructions: Reason For Exam: Reason for Consult: Diet education 09/22/20 09:21 Physical Therapy Evaluation and Treat [CONS] Routine Comment: Reason For Exam: Syncope/unsteady gait/DC needs [facility] Hospital[facility] Reason for admission: Hypoglycemia / hypothermia and syncope Condition: Stable Pertinent studies: CT abdomen and pelvis Chest x-ray CT head Carotid Doppler Echocardiogram Hospital course: 85-year-old male patient with significant history of type 2 diabetes mellitus on oral hypoglycemics was passed out at a gas station EMS found him to be h ypoglycemic with blood sugars of 50 received D50 with significant improvement of blood sugars, patient had CT head without contrast no acute abnormalities noted, rest of the work-up was negative. Patient also had syncope work-up with CT head echocardiogram and carotid Doppler, did not show any changes Patient received physical therapy occupational therapy, recommended home with home health Today patient is comfortable no new complaint back to baseline Physical examination no acute changes hemodynamically stable. Cleared cleared by consultants for discharge and follow-up as outpatient, Patient is stable at discharge Chest x-ray shows no significant abnormalities. CT of the abdomen and pelvis reveals no significant abnormalities to explain the patient's abdominal pain or hypoglycemia. Discharge diagnosis; --Toxic metabolic encephalopathy/altered level of consciousness multifactorial, hypothermia, hypoglycemia, dementia, electrolyte abnormalities -- Hypoglycemia present on admission/improved Monitor blood sugars/resolved --Type 2 diabetes mellitus/A1c 10.4 Accu-Chek sliding scale coverage ADA diet insulin --Syncope Fall precautions ,aspirin 81 mg p.o. daily Lipitor 40 mg p.o. daily. Syncope work-up, CT head, carotid Doppler, echocardiogram, Negative --Hypothermia present on admission Resolved -- GERD (gastroesophageal reflux disease) Protonix 40 mg p.o. daily Zofran 4 mg IV every 6 as needed --Constipation on CT abdomen; Stool softener, milk of magnesia as needed plenty oral fluids Resolved --Arthritis Stable. Tylenol 650 mg p.o. every 6 hours as needed --Full code --DVT prophylaxis Lovenox subcu Cleared by consultants stable at discharge Disposition: DC/TX-06 HOME UNDER HOME TH Final Discharge Diagnosis (Prints w/discharge instructions): Hypoglycemia /resolved. type 2 diabetes mellitus. Syncope. Hypothermia resolved. GERD. Constipation. Arthritis Time spent for discharge: 35 min Core Measure Documentation - Palliative Care Palliative Care/ Comfort Measures: Not Applicable - Core Measures Any of the following diagnoses?: none Exam - Constitutional Vitals: Temp Pulse Resp BP Pulse Ox 98.6 F 73 20 149/87 98 09/25/20 04:45 09/25/20 04:45 09/25/20 04:45 09/25/20 04:45 09/25/20 04:45 General appearance: Present: no acute distress, well-nourished - EENT Eyes: Present: PERRL, EOM intact - Neck Neck: Present: supple, normal ROM - Respiratory Respiratory effort: normal Respiratory: bilateral: diminished, negative: rales, rhonchi, wheezing - Cardiovascular Rhythm: regular Heart Sounds: Present: S1 & S2 - Extremities Extremities: no ischemia, No edema - Abdominal General gastrointestinal: Present: soft, non-tender, non-distended, normal bowel sounds - Integumentary Integumentary: Present: clear, warm - Musculoskeletal Musculoskeletal: strength equal bilaterally - Psychiatric Psychiatric: appropriate mood/affect, cooperative - Neurologic Neurologic: CNII-XII intact, moves all extremities Plan Activity: advance as tolerated, fall precautions Diet: diabetic Additional Instructions: Advised to follow your primary care physician in 3 to 5 days. fall precautions. Do not take your home insulin, new prescription is given to you. Do not take diabetic pills. Strongly advised to comply with medications diet follow-up visits. Avoid hypoglycemia. See your primary care physician in 3 to 5 days. If you have worsening symptoms contact MD or go to emergency room. Patient refused subacute rehab placement[recommended by physical therapy and Occupational Therapy]. Patient needs continues supervision at least for 2 weeks[due to risk of falls. And risk of hypoglycemia due to improper insulin administration]. These instructions were discussed with the patient's son Mr. Chuy Vickers by me and the case work aide Follow up with: ALECIA MORGANCOUNT INCLUDES THE [facility] LULU [Primary Care Provider] - 3-5 Days Prescriptions: Docusate Sodium [Colace] 100 mg PO BID PRN #20 capsule PRN Reason: Constipation Insulin NPH/Regular [NovoLIN 70/30] 16 unit SUB-Q BIDDIAB 30 Days #2 vial
== END 2020-09-25 14:55 | disposition home health service (06) | DRG 639 ==
LOC: ED 18:52 → 3A 23:03 → OBSVTOIN 09-22 09:25
PROVIDERS: ADMIT Hospitalist; ATTEND Internal Medicine
DX: E11.649 Type 2 diabetes mellitus with hypoglycemia without coma (principal); K21.9 Gastro-esophageal reflux disease without esophagitis; T68.XXXA Hypothermia, initial encounter; K59.00 Constipation, unspecified; E11.65 Type 2 diabetes mellitus with hyperglycemia; M19.012 Primary osteoarthritis, left shoulder; M19.011 Primary osteoarthritis, right shoulder; Z90.49 Acquired absence of other specified parts of digestive tract; Z79.84 Long term (current) use of oral hypoglycemic drugs
CPT/HCPCS: 36415; 70450; 71045; 74177; 80048; 80053; 81001; 82140; 82962; 83036; 83735; 84132; 84484; 85025; 85730; 87040; 87086; 93005; 93306; 93880; 96361; 96374; G0378; A9270-GY; J1644; J1650; J1815; J7030; J7042; Q9967